=== PATIENT | male | born 1945 | race Caucasian/White ===

== ENCOUNTER 2019-03-05 01:43 | Inpatient (IN) | payer MEDICARE, MEDICAID ==
--- NOTE | 2019-03-05 02:05 | ED Physician Chart ---
ED Chief Complaint/HPI - Patient Information Date Seen:: 03/05/19 Time Seen:: 02:05 Chief Complaint:: Increased agitation History of Present Illness:: 73 yo male had history of Parkinson's disease, frequent falls, dementia, GERD, arthritis, kidney stones, chronic pain syndrome, depression, right testicular cyst, left epididymal cyst. Pt was recently admitted to [facility] on for sepsis and pneumonia. Pt was treated with IV antibiotics. Pt was discharged to SNF on 03/04/19 with doxycycline 100mg po bid for 7 days. Pt became combative at [facility] with paranoia, hitting staff and being non-compliant with medication. Pt was brought from [facility] to [facility] for psych evaluation and management. At ER, pt was singing songs. Pt had good O2 sat 96% on room air without cough or SOB. Pt had abrasions on bilateral knees due to frequent falls. Allergies:: Allergies Allergy/AdvReac Type Severity Reaction Status Date / Time No Known Allergies Allergy Verified 03/05/19 02:02 ED Review of Systems - Review of Systems General/Constitutional: No fever Skin: Skin lesions, Rash Head: No headache ENT: No nasal drainage Neck: No neck pain Cardio Vascular: No chest pain Pulmonary: SOB GI: No nausea, No vomiting G/U: No dysuria Musculoskeletal: Bone or joint pain Psychiatric: Prior psych history Neurological: No focal symptoms ED Past Medical History - Past Medical History Past Medical History: PUD/GERD, Arthritis, Dementia, Other (Parkinson's disease , frequent falls, kidney stones, chronic pain syndrome, right testicular cyst, left epididymal cyst) Social History: Non Smoker, No Alcohol, No Drug Use Psychiatricy History: Depression Family Medical History - Family Member Mother History Unknown: Yes ED Physical Exam - Physical Examination General/Constitutional: Awake, Alert Other Gen/Cons comments:: Disoriented Head: Atraumatic Eyes: PERRL Other Skin comments:: Erythematous rashes on the forehead Neck: No nuchal rigidity Other Respiratory comments:: Diminished lung sound left lung base Cardio Vascular: RRR, No murmur, gallop, rubs, NL S1 S2 GI: No tenderness/rebounding/guarding Other comments:: Enlarged right testicle Other Neuro/Psych comments:: A&O x 1 ED Labs/Radiology/EKG Results - Lab Results Results: Laboratory Last Values WBC 6.1 Th/cmm (4.8-10.8) 03/05/19 02:40 RBC 4.48 Mil/cmm (3.80-5.80) 03/05/19 02:40 Hgb 13.5 gm/dL (12-16) 03/05/19 02:40 Hct 40.9 % (41.0-60) L 03/05/19 02:40 MCV 91.2 fl (80-99) 03/05/19 02:40 MCH 30.2 pg (27.0-31.0) 03/05/19 02:40 MCHC Differential 33.1 pg (28.0-36.0) 03/05/19 02:40 RDW 13.7 % (11.5-20.0) 03/05/19 02:40 Plt Count 247 Th/cmm (150-400) 03/05/19 02:40 MPV 7.7 fl 03/05/19 02:40 Neutrophils % 80.5 % (40.0-80.0) H 03/05/19 02:40 Lymphocytes % 11.6 % (20.0-50.0) L 03/05/19 02:40 Monocytes % 4.0 % (2.0-10.0) 03/05/19 02:40 Eosinophils % 3.1 % (0.0-5.0) 03/05/19 02:40 Basophils % 0.8 % (0.0-2.0) 03/05/19 02:40 Sodium 140 mEq/L (136-145) 03/05/19 02:40 Potassium 3.5 mEq/L (3.5-5.1) 03/05/19 02:40 Chloride 105 mEq/L (98-107) 03/05/19 02:40 Carbon Dioxide 24.4 mEq/L (21.0-31.0) 03/05/19 02:40 Anion Gap 14.1 (7.0-16.0) 03/05/19 02:40 BUN 14 mg/dL (7-25) 03/05/19 02:40 Creatinine 0.7 mg/dL (0.7-1.3) 03/05/19 02:40 Est GFR ( Amer) TNP 03/05/19 02:40 Est GFR (Non-Af Amer) TNP 03/05/19 02:40 BUN/Creatinine Ratio 20.0 03/05/19 02:40 Glucose 95 mg/dL (70-105) 03/05/19 02:40 Calcium 8.9 mg/dL (8.6-10.3) 03/05/19 02:40 Total Bilirubin 0.8 mg/dL (0.3-1.0) 03/05/19 02:40 AST 23 U/L (13-39) 03/05/19 02:40 ALT 15 U/L (7-52) 03/05/19 02:40 Alkaline Phosphatase 46 U/L (34-104) 03/05/19 02:40 Troponin I 0.02 ng/mL (0.01-0.05) 03/05/19 02:40 B-Natriuretic Peptide 128.0 pg/mL (5.0-100.0) H 03/05/19 02:40 Total Protein 6.2 gm/dL (6.0-8.3) 03/05/19 02:40 Albumin 3.2 gm/dL (4.2-5.5) L 03/05/19 02:40 Globulin 3.0 gm/dL 03/05/19 02:40 Albumin/Globulin Ratio 1.1 (1.0-1.8) 03/05/19 02:40 - Radiology Results Results: CXR: left lower lobe infiltrate - EKG Interpretations EKG Time:: 02:10 Rate & Rhythm: 86 bpm, sinus rhythm Intervals: Right bundle branch block ED Assessment - Assessment General Assessment: Left lower lung pneumonia, resolving Parkinson's disease with frequent falls Dementia GERD Arthritis Kidney stones Chronic pain syndrome Right testicular cyst Left epididymal cyst Depression Psychosis Assessment/Comments:: CBC, CMP, BNP, Trop CXR, EKG Admit to [facility] for further psych evaluation and management Continue Doxycycline 100mg po bid for 7 days ED Septic Shock - . Is Septic Shock (SBP<90, OR Lactate>4 mmol\L) present?: No ED Reassessment (Disposition) - Reassessment Reassessment Condition:: Unchanged - Patient Disposition Discharge/Transfer:: [facility] w/in this hosp Admitting Medical Physician:: Gilles Call Admitting Psych Physician:: Ana Rosa Oneill
[2019-03-05 02:49] LABS: % BASOPHILS 0.8 % (0.0-2.0); % EOSINOPHILS 3.1 % (0.0-5.0); % LYMPHOCYTES 11.6 % (20.0-50.0); % NEUTROPHILS 80.5 % (40.0-80.0); EOSINOPHILE ABSOLUTE 0.2 Th/cmm (0.1-0.4); HEMATOCRIT 40.9 % (41.0-60); HEMOGLOBIN 13.5 gm/dL (12-16); LYMPHOCYTE ABSOLUTE 0.7 Th/cmm (1.5-3.0); MEAN CELL VOLUME 91.2 fl (80-99); MEAN CORPUSCULAR HEMOGLOBIN 30.2 pg (27.0-31.0); MEAN CORPUSCULAR HGB CONC 33.1 pg (28.0-36.0); MEAN PLATELET VOLUME 7.7 fl; MONOCYTE ABSOLUTE 0.2 Th/cmm (0.3-1.0); PLATELET COUNT 247 Th/cmm (150-400); RED BLOOD COUNT 4.48 Mil/cmm (3.80-5.80); RED CELL DISTRIBUTION WIDTH 13.7 % (11.5-20.0); WHITE BLOOD COUNT 6.1 Th/cmm (4.8-10.8)
[2019-03-05 03:06] LABS: ALB/GLOB RATIO 1.1 (1.0-1.8); ALBUMIN 3.2 gm/dL (4.2-5.5); ALKALINE PHOSPHATASE 46 U/L (34-104); ANION GAP 14.1 (7.0-16.0); BILIRUBIN,TOTAL 0.8 mg/dL (0.3-1.0); BUN - UREA NITROGEN 14 mg/dL (7-25); CALCIUM SERUM 8.9 mg/dL (8.6-10.3); CARBON DIOXIDE 24.4 mEq/L (21.0-31.0); CHLORIDE 105 mEq/L (98-107); CREATININE - SERUM 0.7 mg/dL (0.7-1.3); GLUCOSE 95 mg/dL (70-105); POTASSIUM SERUM 3.5 mEq/L (3.5-5.1); SGOT 23 U/L (13-39); SGPT/ALT 15 U/L (7-52); SODIUM SERUM 140 mEq/L (136-145); TOTAL PROTEIN,SERUM 6.2 gm/dL (6.0-8.3)
[2019-03-05] MEDS ORDERED: Maalox 30 mL Cup PO PRN (04:52)
[2019-03-05] MEDS ORDERED: Magnesium Hydroxide (MOM) 30 mL UDC PO PRN (04:52)
[2019-03-05 05:05] VITALS: BP 146/89
[2019-03-05] MEDS ORDERED: Haldol Oral Sol.(concentrate) 10 mg/5 mL Udc PO PRN (05:22)
[2019-03-05] MEDS ORDERED: Hydrocodone/APAP 10 mg/325 mg Tab PO PRN (06:53)
[2019-03-05 08:54] LABS: CHOLESTEROL 153 mg/dL (<200); HDL -HIGH DENSITY LIPOPROTEIN 41 mg/dL (23-92); TRIGLYCERIDES 98 mg/dL (<150)
[2019-03-05] MEDS ORDERED: PIMAVANSERIN TARTRATE PO SCH (09:00)
--- NOTE | 2019-03-05 09:09 | Diagnostic Imaging Report ---
Exam: Portable chest x-ray HISTORY: Shortness of breath COMPARISON: None Findings: Portable upright examination of the chest at 0307 hours reviewed, no prior studies available comparison. The study demonstrates mild left basal peribronchial infiltrate. The right lung parenchyma is well aerated. Mediastinal structures midline bony thorax intact. IMPRESSION mild left basal peribronchial infiltrate follow-up dictation recommended.
[2019-03-05] MEDS: Multivitamin Tab PO SCH (09:10)
[2019-03-05] MEDS: Pantoprazole 40 mg EC Tab PO SCH (09:12)
--- NOTE | 2019-03-05 23:04 | History & Physical ---
ADMIT DATE: 03/05/2019 HISTORY OF PRESENT ILLNESS: The patient is a 73-year-old male with long history of Parkinson disease, degenerative joint disease, dementia, chronic back pain, admitted to [facility] under Dr. Gupta's service. The patient is a poor historian. The patient has been on antibiotic for pneumonia. PAST MEDICAL HISTORY: Parkinson disease, degenerative joint disease, dementia. PAST SURGICAL HISTORY: Recent surgery. ALLERGIES: None. MEDICATIONS: Follow admission reconciliation. SOCIAL HISTORY: No smoking, no alcohol, no drug. FAMILY HISTORY: Noncontributory. REVIEW OF SYSTEMS: RENAL: No history of chronic renal disorder. CARDIOVASCULAR: No coronary artery disease. ENDOCRINE: No diabetes or thyroid problem. GASTROINTESTINAL: No upper or lower gastrointestinal bleed. NEUROLOGICAL: He has history of Parkinson disease. MUSCULOSKELETAL: Has degenerative joint disease. HEMATOLOGIC: No bleeding tendencies. RESPIRATORY: No asthma. He has history of pneumonia. PHYSICAL EXAMINATION: GENERAL: He is awake, not coherent. VITAL SIGNS: Temperature 98.4, heart rate 60, blood pressure 113/57. HEENT: Normocephalic. Pupils reactive to light and accommodation. Sclerae clear. NECK: Supple. Negative for adenopathy or JVD. CHEST: Entry of bilateral diminished. HEART: S1, S2 normal. No murmur or gallop rhythm. ABDOMEN: Soft, bowel sounds positive. EXTREMITIES: No edema. NEUROLOGIC: He is awake, not coherent. LABORATORY DATA: White blood 6.1, hemoglobin 13.5, hematocrit 40.9, platelets 247. Sodium 140, potassium 3.5, BUN 14, creatinine 0.7. ASSESSMENT: 1. Parkinson disease. 2. Chronic back pain. 3. Degenerative joint disease. 4. Dementia. PLAN: The patient in the hospital under Dr. Gupta's service. Medical problems to address during the hospitalization are dementia and psychosis. Medical problem addressed at discharge is Parkinson disease. The patient is medically stable for activity. Thank you Dr. Gupta for asking me to see your patient. The patient is a full code. JOB# [id number]
[2019-03-06] MEDS: Pantoprazole 40 mg EC Tab PO SCH (06:40)
--- NOTE | 2019-03-06 08:20 | Psychiatric Evaluation ---
DATE OF SERVICE: 03/05/2019 JUSTIFICATION FOR HOSPITALIZATION: Increased agitation. HISTORY OF PRESENT ILLNESS: A 73-year-old male with history of dementia, multiple other problems, AO to name, place and situation, not year, not month, says the year is 1985, unable to have any meaningful conversation with the patient, intermittently impulsive, unpredictable, concerns for acting out behaviors. Also, history of fall, currently in a Lala chair, here for increased aggressive and agitated behaviors. PAST PSYCHIATRIC HISTORY: Dementia. PAST MEDICAL HISTORY: Noted including pneumonia. SOCIAL HISTORY: Tells me he was born in [place]. He has 1 adult child, 1 grandson, unclear if he is , currently residing in a shelter. MEDICATIONS: Noted. MENTAL STATUS EXAMINATION: Stated age, in a Lala chair. Fair eye contact. Speech is rambling. Mood, "okay." Affect flat. Thought processes were confused, disoriented. No SI, no HI. No overt psychotic symptoms. Insight and judgment are poor. PROVISIONAL DIAGNOSES: Dementia with dementia behaviors. Under medical, please see full H and P. ESTIMATED LENGTH OF STAY: 7-10 days. ASSESSMENT: The patient requiring hospitalization, aggressive and agitated. We will also add Namenda to regimen. TREATMENT PLAN: Includes group as well as milieu therapy. CONDITIONS FOR DISCHARGE: Improved mood, improved affect, better control of any agitation and aggressive behaviors. JOB# [id number]
[2019-03-06] MEDS: Multivitamin Tab PO SCH (08:43)
[2019-03-06] MEDS ORDERED: Haldol Oral Sol.(concentrate) 10 mg/5 mL Udc PO SCH (09:00)
--- NOTE | 2019-03-06 17:29 | Internal Medicine Prog Note ---
Internal Medicine Subjective - Subjective Service Date: 03/06/19 Patient seen and examined:: without staff Patient is:: awake, verbal, talking, confused Per staff patient has:: no adverse event Internal Medicine Objective - Results Result Diagrams: 03/05/19 02:40 03/05/19 02:40 Recent Labs: Laboratory Last Values WBC 6.1 Th/cmm (4.8-10.8) 03/05/19 02:40 RBC 4.48 Mil/cmm (3.80-5.80) 03/05/19 02:40 Hgb 13.5 gm/dL (12-16) 03/05/19 02:40 Hct 40.9 % (41.0-60) L 03/05/19 02:40 MCV 91.2 fl (80-99) 03/05/19 02:40 MCH 30.2 pg (27.0-31.0) 03/05/19 02:40 MCHC Differential 33.1 pg (28.0-36.0) 03/05/19 02:40 RDW 13.7 % (11.5-20.0) 03/05/19 02:40 Plt Count 247 Th/cmm (150-400) 03/05/19 02:40 MPV 7.7 fl 03/05/19 02:40 Neutrophils % 80.5 % (40.0-80.0) H 03/05/19 02:40 Lymphocytes % 11.6 % (20.0-50.0) L 03/05/19 02:40 Monocytes % 4.0 % (2.0-10.0) 03/05/19 02:40 Eosinophils % 3.1 % (0.0-5.0) 03/05/19 02:40 Basophils % 0.8 % (0.0-2.0) 03/05/19 02:40 Sodium 140 mEq/L (136-145) 03/05/19 02:40 Potassium 3.5 mEq/L (3.5-5.1) 03/05/19 02:40 Chloride 105 mEq/L (98-107) 03/05/19 02:40 Carbon Dioxide 24.4 mEq/L (21.0-31.0) 03/05/19 02:40 Anion Gap 14.1 (7.0-16.0) 03/05/19 02:40 BUN 14 mg/dL (7-25) 03/05/19 02:40 Creatinine 0.7 mg/dL (0.7-1.3) 03/05/19 02:40 Est GFR ( Amer) TNP 03/05/19 02:40 Est GFR (Non-Af Amer) TNP 03/05/19 02:40 BUN/Creatinine Ratio 20.0 03/05/19 02:40 Glucose 95 mg/dL (70-105) 03/05/19 02:40 Calcium 8.9 mg/dL (8.6-10.3) 03/05/19 02:40 Total Bilirubin 0.8 mg/dL (0.3-1.0) 03/05/19 02:40 AST 23 U/L (13-39) 03/05/19 02:40 ALT 15 U/L (7-52) 03/05/19 02:40 Alkaline Phosphatase 46 U/L (34-104) 03/05/19 02:40 Troponin I 0.02 ng/mL (0.01-0.05) 03/05/19 02:40 B-Natriuretic Peptide 128.0 pg/mL (5.0-100.0) H 03/05/19 02:40 Total Protein 6.2 gm/dL (6.0-8.3) 03/05/19 02:40 Albumin 3.2 gm/dL (4.2-5.5) L 03/05/19 02:40 Globulin 3.0 gm/dL 03/05/19 02:40 Albumin/Globulin Ratio 1.1 (1.0-1.8) 03/05/19 02:40 Triglycerides 98 mg/dL (<150) 03/05/19 02:40 Cholesterol 153 mg/dL (<200) 03/05/19 02:40 LDL Cholesterol Direct 100 mg/dL (75-193) 03/05/19 02:40 HDL Cholesterol 41 mg/dL (23-92) 03/05/19 02:40 TSH 2.77 uIU/ml (0.34-5.60) 03/05/19 02:40 - Physical Exam Vitals and I&O: Vital Signs Temp 97.6 F 03/06/19 14:00 Pulse 90 03/06/19 14:00 Resp 18 03/06/19 14:00 BP 116/52 03/06/19 14:00 Pulse Ox 97 03/06/19 14:00 Intake & Output 03/05/19 03/06/19 03/06/19 18:59 06:59 18:59 Intake Total 800 120 Balance 800 120 Intake: Oral 800 120 Other: # Voids 3 3 # Bowel Movements 1 0 Stool Characteristics Soft Active Medications: Current Medications Acetaminophen (Tylenol) 650 mg PO Q4HR PRN PRN Reason: Mild Pain / Temp above 100 Stop: 05/04/19 04:51 Acetaminophen/Hydrocodone Bitart ([place] 10 Mg/325 Mg) 1 tab PO Q6HR PRN PRN Reason: moderate pain Stop: 05/04/19 06:52 Al Hydrox/Mg Hydrox/Simethicone (Maalox) 30 ml PO Q4HR PRN PRN Reason: GI DISTRESS Stop: 05/04/19 04:51 Carbidopa/Levodopa (Sinemet 25 Mg-250 Mg) 1 tab PO QID [facility] Stop: 05/04/19 08:59 Last Admin: 03/06/19 16:38 Dose: 1 tab Cholecalciferol (Vitamin D3) 2,000 iu PO DAILY [facility] Stop: 05/04/19 08:59 Last Admin: 03/06/19 08:41 Dose: 2,000 iu Doxycycline Hyclate (Vibramycin) 100 mg PO BID [facility] Stop: 05/04/19 08:59 Last Admin: 03/06/19 16:37 Dose: 100 mg Fluoxetine HCl (Prozac) 20 mg PO DAILY [facility]; Protocol Stop: 05/04/19 08:59 Last Admin: 03/06/19 08:43 Dose: 20 mg Gabapentin (Neurontin) 300 mg PO TID [facility] Stop: 05/04/19 08:59 Last Admin: 03/06/19 14:05 Dose: 300 mg Haloperidol Lactate (Haldol Concentrate 10mg/5ml Susp) 5 mg PO Q6HR PRN; Protocol PRN Reason: Agitation Stop: 05/04/19 05:59 Last Admin: 03/06/19 08:42 Dose: 5 mg Lorazepam (Ativan) 0.5 mg PO Q4HR PRN; Protocol PRN Reason: Anxiety Stop: 04/04/19 04:51 Last Admin: 03/05/19 21:27 Dose: 0.5 mg Magnesium Hydroxide (Milk Of Magnesia) 30 ml PO HS PRN PRN Reason: Constipation Memantine (Namenda) 5 mg PO DAILY [facility] Stop: 05/05/19 08:59 Last Admin: 03/06/19 08:43 Dose: 5 mg Miscellaneous (Pimavanserin Tartrate [Nuplazid]) 1 tab PO BID [facility] Stop: 05/04/19 08:59 Multivitamins/Vitamin C (Theragran) 1 tab PO DAILY [facility] Stop: 05/04/19 08:59 Last Admin: 03/06/19 08:43 Dose: 1 tab Pantoprazole Sodium (Protonix) 40 mg PO QDAC [facility] Stop: 05/04/19 07:59 Last Admin: 03/06/19 06:40 Dose: 40 mg Pramipexole Dihydrochloride (Mirapex) 0.5 mg PO TID [facility]; Protocol Stop: 05/04/19 08:59 Last Admin: 03/05/19 20:41 Dose: 0.5 mg Risperidone (Risperdal) 0.5 mg PO BID [facility]; Protocol Stop: 05/05/19 16:59 Last Admin: 03/06/19 16:37 Dose: 0.5 mg Tizanidine HCl (Zanaflex) 4 mg PO TID [facility] Stop: 05/04/19 08:59 Last Admin: 03/05/19 20:41 Dose: 4 mg Zolpidem Tartrate (Ambien) 5 mg PO HS PRN PRN Reason: Insomnia Stop: 05/04/19 04:51 Last Admin: 03/05/19 21:28 Dose: 5 mg General: demented HEENT: NC/AT, PERRLA, EOMI, anicteric sclerae, throat clear Neck: Supple, No JVD, No thyromegaly, +2 carotid pulse wo bruit, No LAD, + JVD Lungs: CTAB Cardiovascular: RRR, Normal S1, Normal S2, without murmur Abdomen: soft, non-tender, non-distended Neurological: no change Internal Medicine Assmt/Plan - Assessment Assessment: 1.DJD. 2.CONSTIPATION. 3.DEMENTIA - Plan Plan: CONTINUE ON CURRENT MEDICATION AND DIET.
--- NOTE | 2019-03-06 22:43 | Progress Notes ---
DATE: 03/06/2019 The patient is aggressive, agitated, trying to hit staff, quite demented, very impulsive, unpredictable, also hypersexual currently on a dosing of Namenda and Prozac. The patient seems to be out of touch with reality. Concerns for violent behaviors, aggressive behaviors. ASSESSMENT: The patient is symptomatic, fair sleep, fair appetite, but very aggressive, hypersexual towards staff, attempting to harm staff. PLAN: We will stop Haldol, changed to dosing of Risperdal. [facility]# [id number]
[2019-03-07] MEDS: Pantoprazole 40 mg EC Tab PO SCH ×2 (06:33→08:30)
[2019-03-07] MEDS: Multivitamin Tab PO SCH (08:29)
--- NOTE | 2019-03-07 20:51 | Internal Medicine Prog Note ---
Internal Medicine Subjective - Subjective Service Date: 03/07/19 Patient seen and examined:: without staff (HE IS DOING WELL) Patient is:: awake, verbal, talking, confused Per staff patient has:: no adverse event Internal Medicine Objective - Results Result Diagrams: 03/05/19 02:40 03/05/19 02:40 Recent Labs: Laboratory Last Values WBC 6.1 Th/cmm (4.8-10.8) 03/05/19 02:40 RBC 4.48 Mil/cmm (3.80-5.80) 03/05/19 02:40 Hgb 13.5 gm/dL (12-16) 03/05/19 02:40 Hct 40.9 % (41.0-60) L 03/05/19 02:40 MCV 91.2 fl (80-99) 03/05/19 02:40 MCH 30.2 pg (27.0-31.0) 03/05/19 02:40 MCHC Differential 33.1 pg (28.0-36.0) 03/05/19 02:40 RDW 13.7 % (11.5-20.0) 03/05/19 02:40 Plt Count 247 Th/cmm (150-400) 03/05/19 02:40 MPV 7.7 fl 03/05/19 02:40 Neutrophils % 80.5 % (40.0-80.0) H 03/05/19 02:40 Lymphocytes % 11.6 % (20.0-50.0) L 03/05/19 02:40 Monocytes % 4.0 % (2.0-10.0) 03/05/19 02:40 Eosinophils % 3.1 % (0.0-5.0) 03/05/19 02:40 Basophils % 0.8 % (0.0-2.0) 03/05/19 02:40 Sodium 140 mEq/L (136-145) 03/05/19 02:40 Potassium 3.5 mEq/L (3.5-5.1) 03/05/19 02:40 Chloride 105 mEq/L (98-107) 03/05/19 02:40 Carbon Dioxide 24.4 mEq/L (21.0-31.0) 03/05/19 02:40 Anion Gap 14.1 (7.0-16.0) 03/05/19 02:40 BUN 14 mg/dL (7-25) 03/05/19 02:40 Creatinine 0.7 mg/dL (0.7-1.3) 03/05/19 02:40 Est GFR ( Amer) TNP 03/05/19 02:40 Est GFR (Non-Af Amer) TNP 03/05/19 02:40 BUN/Creatinine Ratio 20.0 03/05/19 02:40 Glucose 95 mg/dL (70-105) 03/05/19 02:40 Calcium 8.9 mg/dL (8.6-10.3) 03/05/19 02:40 Total Bilirubin 0.8 mg/dL (0.3-1.0) 03/05/19 02:40 AST 23 U/L (13-39) 03/05/19 02:40 ALT 15 U/L (7-52) 03/05/19 02:40 Alkaline Phosphatase 46 U/L (34-104) 03/05/19 02:40 Troponin I 0.02 ng/mL (0.01-0.05) 03/05/19 02:40 B-Natriuretic Peptide 128.0 pg/mL (5.0-100.0) H 03/05/19 02:40 Total Protein 6.2 gm/dL (6.0-8.3) 03/05/19 02:40 Albumin 3.2 gm/dL (4.2-5.5) L 03/05/19 02:40 Globulin 3.0 gm/dL 03/05/19 02:40 Albumin/Globulin Ratio 1.1 (1.0-1.8) 03/05/19 02:40 Triglycerides 98 mg/dL (<150) 03/05/19 02:40 Cholesterol 153 mg/dL (<200) 03/05/19 02:40 LDL Cholesterol Direct 100 mg/dL (75-193) 03/05/19 02:40 HDL Cholesterol 41 mg/dL (23-92) 03/05/19 02:40 TSH 2.77 uIU/ml (0.34-5.60) 03/05/19 02:40 - Physical Exam Vitals and I&O: Vital Signs Temp 98.1 F 03/07/19 20:17 Pulse 103 03/07/19 20:17 Resp 20 03/07/19 20:17 BP 114/80 03/07/19 20:17 Pulse Ox 96 03/07/19 20:17 Intake & Output 03/07/19 03/07/19 03/08/19 06:59 18:59 06:59 Intake Total 120 850 240 Output Total 1 Balance 120 850 239 Intake: Oral 120 850 240 Output: Urine/Stool Mix 1 Other: # Voids 2 3 1 # Bowel Movements 0 0 Stool Characteristics Soft Active Medications: Current Medications Acetaminophen (Tylenol) 650 mg PO Q4HR PRN PRN Reason: Mild Pain / Temp above 100 Stop: 05/04/19 04:51 Acetaminophen/Hydrocodone Bitart ([place] 10 Mg/325 Mg) 1 tab PO Q6HR PRN PRN Reason: moderate pain Stop: 05/04/19 06:52 Al Hydrox/Mg Hydrox/Simethicone (Maalox) 30 ml PO Q4HR PRN PRN Reason: GI DISTRESS Stop: 05/04/19 04:51 Carbidopa/Levodopa (Sinemet 25 Mg-250 Mg) 1 tab PO QID [facility] Stop: 05/04/19 08:59 Last Admin: 03/07/19 20:46 Dose: 1 tab Cholecalciferol (Vitamin D3) 2,000 iu PO DAILY [facility] Stop: 05/04/19 08:59 Last Admin: 03/07/19 08:31 Dose: 2,000 iu Doxycycline Hyclate (Vibramycin) 100 mg PO BID [facility] Stop: 05/04/19 08:59 Last Admin: 03/07/19 16:15 Dose: 100 mg Fluoxetine HCl (Prozac) 20 mg PO DAILY [facility]; Protocol Stop: 05/04/19 08:59 Last Admin: 03/07/19 08:29 Dose: 20 mg Gabapentin (Neurontin) 300 mg PO TID [facility] Stop: 05/04/19 08:59 Last Admin: 03/07/19 20:46 Dose: 300 mg Haloperidol Lactate (Haldol Concentrate 10mg/5ml Susp) 5 mg PO Q6HR PRN; Protocol PRN Reason: Agitation Stop: 05/04/19 05:59 Last Admin: 03/06/19 08:42 Dose: 5 mg Lorazepam (Ativan) 0.5 mg PO Q4HR PRN; Protocol PRN Reason: Anxiety Stop: 04/04/19 04:51 Last Admin: 03/05/19 21:27 Dose: 0.5 mg Magnesium Hydroxide (Milk Of Magnesia) 30 ml PO HS PRN PRN Reason: Constipation Memantine (Namenda) 5 mg PO DAILY [facility] Stop: 05/05/19 08:59 Last Admin: 03/07/19 08:31 Dose: 5 mg Miscellaneous (Pimavanserin Tartrate [Nuplazid]) 1 tab PO BID [facility] Stop: 05/04/19 08:59 Multivitamins/Vitamin C (Theragran) 1 tab PO DAILY [facility] Stop: 05/04/19 08:59 Last Admin: 03/07/19 08:29 Dose: 1 tab Pantoprazole Sodium (Protonix) 40 mg PO QDAC [facility] Stop: 05/04/19 07:59 Last Admin: 03/07/19 08:30 Dose: 40 mg Pramipexole Dihydrochloride (Mirapex) 0.5 mg PO TID [facility]; Protocol Stop: 05/04/19 08:59 Last Admin: 03/07/19 20:46 Dose: 0.5 mg Risperidone (Risperdal) 0.5 mg PO BID [facility]; Protocol Stop: 05/05/19 16:59 Last Admin: 03/07/19 16:16 Dose: 0.5 mg Tizanidine HCl (Zanaflex) 4 mg PO TID [facility] Stop: 05/04/19 08:59 Last Admin: 03/07/19 20:46 Dose: 4 mg Zolpidem Tartrate (Ambien) 5 mg PO HS PRN PRN Reason: Insomnia Stop: 05/04/19 04:51 Last Admin: 03/06/19 20:30 Dose: 5 mg General: demented HEENT: NC/AT, PERRLA, EOMI, anicteric sclerae, throat clear Neck: Supple, No JVD, No thyromegaly, +2 carotid pulse wo bruit, No LAD, + JVD Lungs: CTAB Cardiovascular: RRR, Normal S1, Normal S2, without murmur Abdomen: soft, non-tender, non-distended Neurological: no change Internal Medicine Assmt/Plan - Assessment Assessment: 1.DJD. 2.CONSTIPATION. 3.DEMENTIA - Plan Plan: CONTINUE ON CURRENT MEDICATION AND DIET.
--- NOTE | 2019-03-08 02:52 | Progress Notes ---
DATE: 03/07/2019 The patient noted to be aggressive, agitated at times, trying to hit staff, very confused, disoriented. Ongoing safety concerns. Currently taking Namenda. Currently on a low dose of Risperdal. Staff noting he remains impulsive, unpredictable, mostly keeps to himself. Behavior seems to be lessening but he believes there is a democrat and he is hypersexual, trying to touch female nurses, preoccupied with female nurses. ASSESSMENT: Ongoing behavioral disturbances, cannot be cared for at a lower level of care. Continue Namenda and Risperdal. JOB# [id number]
[2019-03-08] MEDS: Pantoprazole 40 mg EC Tab PO SCH (06:46)
[2019-03-08] MEDS: Multivitamin Tab PO SCH (09:49)
--- NOTE | 2019-03-08 21:10 | Internal Medicine Prog Note ---
Internal Medicine Subjective - Subjective Service Date: 03/08/19 Patient seen and examined:: with staff Patient is:: awake, verbal, talking, confused Per staff patient has:: no adverse event Internal Medicine Objective - Results Result Diagrams: 03/05/19 02:40 03/05/19 02:40 Recent Labs: Laboratory Last Values WBC 6.1 Th/cmm (4.8-10.8) 03/05/19 02:40 RBC 4.48 Mil/cmm (3.80-5.80) 03/05/19 02:40 Hgb 13.5 gm/dL (12-16) 03/05/19 02:40 Hct 40.9 % (41.0-60) L 03/05/19 02:40 MCV 91.2 fl (80-99) 03/05/19 02:40 MCH 30.2 pg (27.0-31.0) 03/05/19 02:40 MCHC Differential 33.1 pg (28.0-36.0) 03/05/19 02:40 RDW 13.7 % (11.5-20.0) 03/05/19 02:40 Plt Count 247 Th/cmm (150-400) 03/05/19 02:40 MPV 7.7 fl 03/05/19 02:40 Neutrophils % 80.5 % (40.0-80.0) H 03/05/19 02:40 Lymphocytes % 11.6 % (20.0-50.0) L 03/05/19 02:40 Monocytes % 4.0 % (2.0-10.0) 03/05/19 02:40 Eosinophils % 3.1 % (0.0-5.0) 03/05/19 02:40 Basophils % 0.8 % (0.0-2.0) 03/05/19 02:40 Sodium 140 mEq/L (136-145) 03/05/19 02:40 Potassium 3.5 mEq/L (3.5-5.1) 03/05/19 02:40 Chloride 105 mEq/L (98-107) 03/05/19 02:40 Carbon Dioxide 24.4 mEq/L (21.0-31.0) 03/05/19 02:40 Anion Gap 14.1 (7.0-16.0) 03/05/19 02:40 BUN 14 mg/dL (7-25) 03/05/19 02:40 Creatinine 0.7 mg/dL (0.7-1.3) 03/05/19 02:40 Est GFR ( Amer) TNP 03/05/19 02:40 Est GFR (Non-Af Amer) TNP 03/05/19 02:40 BUN/Creatinine Ratio 20.0 03/05/19 02:40 Glucose 95 mg/dL (70-105) 03/05/19 02:40 Calcium 8.9 mg/dL (8.6-10.3) 03/05/19 02:40 Total Bilirubin 0.8 mg/dL (0.3-1.0) 03/05/19 02:40 AST 23 U/L (13-39) 03/05/19 02:40 ALT 15 U/L (7-52) 03/05/19 02:40 Alkaline Phosphatase 46 U/L (34-104) 03/05/19 02:40 Troponin I 0.02 ng/mL (0.01-0.05) 03/05/19 02:40 B-Natriuretic Peptide 128.0 pg/mL (5.0-100.0) H 03/05/19 02:40 Total Protein 6.2 gm/dL (6.0-8.3) 03/05/19 02:40 Albumin 3.2 gm/dL (4.2-5.5) L 03/05/19 02:40 Globulin 3.0 gm/dL 03/05/19 02:40 Albumin/Globulin Ratio 1.1 (1.0-1.8) 03/05/19 02:40 Triglycerides 98 mg/dL (<150) 03/05/19 02:40 Cholesterol 153 mg/dL (<200) 03/05/19 02:40 LDL Cholesterol Direct 100 mg/dL (75-193) 03/05/19 02:40 HDL Cholesterol 41 mg/dL (23-92) 03/05/19 02:40 TSH 2.77 uIU/ml (0.34-5.60) 03/05/19 02:40 - Physical Exam Vitals and I&O: Vital Signs Temp 97 F 03/08/19 20:00 Pulse 92 03/08/19 20:00 Resp 19 03/08/19 20:00 BP 161/74 03/08/19 20:00 Pulse Ox 97 03/08/19 20:00 Intake & Output 03/08/19 03/08/19 03/09/19 06:59 18:59 06:59 Intake Total 300 960 Output Total 1 Balance 299 960 Intake: Oral 300 960 Output: Urine/Stool Mix 1 Other: # Voids 2 3 # Bowel Movements 0 1 Active Medications: Current Medications Acetaminophen (Tylenol) 650 mg PO Q4HR PRN PRN Reason: Mild Pain / Temp above 100 Stop: 05/04/19 04:51 Acetaminophen/Hydrocodone Bitart ([place] 10 Mg/325 Mg) 1 tab PO Q6HR PRN PRN Reason: moderate pain Stop: 05/04/19 06:52 Al Hydrox/Mg Hydrox/Simethicone (Maalox) 30 ml PO Q4HR PRN PRN Reason: GI DISTRESS Stop: 05/04/19 04:51 Carbidopa/Levodopa (Sinemet 25 Mg-250 Mg) 1 tab PO QID [facility] Stop: 05/04/19 08:59 Last Admin: 03/08/19 21:08 Dose: 1 tab Cholecalciferol (Vitamin D3) 2,000 iu PO DAILY [facility] Stop: 05/04/19 08:59 Last Admin: 03/08/19 09:49 Dose: 2,000 iu Doxycycline Hyclate (Vibramycin) 100 mg PO BID [facility] Stop: 05/04/19 08:59 Last Admin: 03/08/19 17:31 Dose: 100 mg Fluoxetine HCl (Prozac) 20 mg PO DAILY [facility]; Protocol Stop: 05/04/19 08:59 Last Admin: 03/08/19 09:50 Dose: 20 mg Gabapentin (Neurontin) 300 mg PO TID [facility] Stop: 05/04/19 08:59 Last Admin: 03/08/19 21:08 Dose: 300 mg Haloperidol Lactate (Haldol Concentrate 10mg/5ml Susp) 5 mg PO Q6HR PRN; Protocol PRN Reason: Agitation Stop: 05/04/19 05:59 Last Admin: 03/06/19 08:42 Dose: 5 mg Lorazepam (Ativan) 0.5 mg PO Q4HR PRN; Protocol PRN Reason: Anxiety Stop: 04/04/19 04:51 Last Admin: 03/08/19 17:31 Dose: 0.5 mg Magnesium Hydroxide (Milk Of Magnesia) 30 ml PO HS PRN PRN Reason: Constipation Memantine (Namenda) 5 mg PO DAILY [facility] Stop: 05/05/19 08:59 Last Admin: 03/08/19 09:49 Dose: 5 mg Miscellaneous (Pimavanserin Tartrate [Nuplazid]) 1 tab PO BID [facility] Stop: 05/04/19 08:59 Multivitamins/Vitamin C (Theragran) 1 tab PO DAILY [facility] Stop: 05/04/19 08:59 Last Admin: 03/08/19 09:49 Dose: 1 tab Pantoprazole Sodium (Protonix) 40 mg PO QDAC [facility] Stop: 05/04/19 07:59 Last Admin: 03/08/19 06:46 Dose: 40 mg Pramipexole Dihydrochloride (Mirapex) 0.5 mg PO TID [facility]; Protocol Stop: 05/04/19 08:59 Last Admin: 03/08/19 21:08 Dose: 0.5 mg Risperidone (Risperdal) 0.5 mg PO BID [facility]; Protocol Stop: 05/05/19 16:59 Last Admin: 03/08/19 17:31 Dose: 0.5 mg Tizanidine HCl (Zanaflex) 4 mg PO TID [facility] Stop: 05/04/19 08:59 Last Admin: 03/08/19 21:08 Dose: 4 mg Zolpidem Tartrate (Ambien) 5 mg PO HS PRN PRN Reason: Insomnia Stop: 05/04/19 04:51 Last Admin: 03/06/19 20:30 Dose: 5 mg General: demented HEENT: NC/AT, PERRLA, EOMI, anicteric sclerae, throat clear Neck: Supple, No JVD, No thyromegaly, +2 carotid pulse wo bruit, No LAD, + JVD Lungs: CTAB Cardiovascular: RRR, Normal S1, Normal S2, without murmur Abdomen: soft, non-tender, non-distended Neurological: no change Internal Medicine Assmt/Plan - Assessment Assessment: 1.DJD. 2.CONSTIPATION. 3.DEMENTIA - Plan Plan: CONTINUE ON CURRENT MEDICATION AND DIET. Nutritional Asmnt/Malnutr-PDOC - Dietary Evaluation Malnutrition Findings (Please click <Entered> for more info): Nutritional Asmnt/Malnutrition Start: 03/08/19 08: 25 Text: Status: Complete Freq: Protocol: Document 03/08/19 08:27 ALO (Rec: 03/08/19 08:52 ALO BRITNI- [email or web address]) Nutritional Asmnt/Malnutrition Patient General Information Nutritional Screening Moderate Risk Diagnosis Psychosis Pertinent Medical Hx/Surgical Hx Parkinson's disease, degernerative joint disease, dementia Subjective Information Admitted from [facility]. Patient not in room at time of visit. Current Diet Order/ Nutrition Support Pureed Patient / S.O Not Indicated Pertinent Medications maalox, vitamin D, MOM, Theragran, protonix Pertinent Labs (03/05) Albumin 3.2, BNP 128 Nutritional Hx/Data Height 1.75 m Height (Calculated Centimeters) 175.3 Current Weight (lbs) 83.007 kg Weight (Calculated Kilograms) 83.0 Weight (Calculated Grams) 48034.4 [place] Body Weight 160 % [place] Body Weight 114 Body Mass Index (BMI) 27.0 Recent Weight Change No Weight Status Overweight GI Symptoms GI Symptoms None Last BM 03/06 x 1 Difficult in: None Food Allergies No Cultural/Ethnic/Gnosticist Belief none indicated Usual diet at home unknown Skin Integrity/Comment: [place] 18, abrasion on both knees, wound Current %PO Good (75-100%) Estimated Nutritional Goals BEE in Kcals: Using Current wt Calories/Kcals/Kg using CBW 83kg Kcals Calculated 5641-4058 kcal/day (22-27kcal/ kg) Protein: Using Current wt Protein g/k.8-1 gm/kg Protein Calculated ~65-85 gm/day Fluid: ml 3682-0776 ml/day Nutritional Problem 1. Problem Problem No nutrition related diagnosis Intervention/Recommendation Comments 1. Continue pureed diet as tolerated by patient. Expected Outcomes/Goals Expected Outcomes/Goals Oral intake >75% of meals, weight stable, nutrition related labs WNL F/U LR 03/15
--- NOTE | 2019-03-09 04:55 | Progress Notes ---
DATE: 03/08/[address] Gupta. SUBJECTIVE: Case was discussed with staff of the patient, reviewed records. This is a 73-year-old male with a history of dementia, who was admitted on 03/05/2019 because of impulsivity, unpredictable behavior with a history of dementia. He is unpredictable, impulsive, demented, confused. He was trying to hit staff yesterday. He continues to be easily agitated and aggressive. He was started on a low dose of Risperdal. He continues to also be hypersexual trying to touch females and the nurses. Continues to have poor insight, unpredictable, impulsive. We will continue outpatient group therapy, milieu therapy, adjust the medication as needed. JOB# [id number]
[2019-03-09] MEDS: Pantoprazole 40 mg EC Tab PO SCH (06:35)
[2019-03-09] MEDS: Multivitamin Tab PO SCH (09:59)
--- NOTE | 2019-03-09 13:25 | Progress Notes ---
DATE: 03/09/[address] Gupta. Case was discussed with staff of the patient, reviewed records. The patient continues to be confused, demented. Continues to be unable to make safe plan for self-care, unpredictable, impulsive with episodes of being very agitated, hitting staff, aggressive. He is compliant with the medication with no side effects. Also, at times hypersexual and we will continue to work with the patient in group therapy, milieu therapy, and adjust the medication as needed. JOB# [id number]
--- NOTE | 2019-03-09 17:08 | Internal Medicine Prog Note ---
Internal Medicine Subjective - Subjective Service Date: 03/09/19 Patient seen and examined:: without staff Patient is:: awake, verbal, talking, confused Per staff patient has:: no adverse event Internal Medicine Objective - Results Result Diagrams: 03/05/19 02:40 03/05/19 02:40 Recent Labs: Laboratory Last Values WBC 6.1 Th/cmm (4.8-10.8) 03/05/19 02:40 RBC 4.48 Mil/cmm (3.80-5.80) 03/05/19 02:40 Hgb 13.5 gm/dL (12-16) 03/05/19 02:40 Hct 40.9 % (41.0-60) L 03/05/19 02:40 MCV 91.2 fl (80-99) 03/05/19 02:40 MCH 30.2 pg (27.0-31.0) 03/05/19 02:40 MCHC Differential 33.1 pg (28.0-36.0) 03/05/19 02:40 RDW 13.7 % (11.5-20.0) 03/05/19 02:40 Plt Count 247 Th/cmm (150-400) 03/05/19 02:40 MPV 7.7 fl 03/05/19 02:40 Neutrophils % 80.5 % (40.0-80.0) H 03/05/19 02:40 Lymphocytes % 11.6 % (20.0-50.0) L 03/05/19 02:40 Monocytes % 4.0 % (2.0-10.0) 03/05/19 02:40 Eosinophils % 3.1 % (0.0-5.0) 03/05/19 02:40 Basophils % 0.8 % (0.0-2.0) 03/05/19 02:40 Sodium 140 mEq/L (136-145) 03/05/19 02:40 Potassium 3.5 mEq/L (3.5-5.1) 03/05/19 02:40 Chloride 105 mEq/L (98-107) 03/05/19 02:40 Carbon Dioxide 24.4 mEq/L (21.0-31.0) 03/05/19 02:40 Anion Gap 14.1 (7.0-16.0) 03/05/19 02:40 BUN 14 mg/dL (7-25) 03/05/19 02:40 Creatinine 0.7 mg/dL (0.7-1.3) 03/05/19 02:40 Est GFR ( Amer) TNP 03/05/19 02:40 Est GFR (Non-Af Amer) TNP 03/05/19 02:40 BUN/Creatinine Ratio 20.0 03/05/19 02:40 Glucose 95 mg/dL (70-105) 03/05/19 02:40 Calcium 8.9 mg/dL (8.6-10.3) 03/05/19 02:40 Total Bilirubin 0.8 mg/dL (0.3-1.0) 03/05/19 02:40 AST 23 U/L (13-39) 03/05/19 02:40 ALT 15 U/L (7-52) 03/05/19 02:40 Alkaline Phosphatase 46 U/L (34-104) 03/05/19 02:40 Troponin I 0.02 ng/mL (0.01-0.05) 03/05/19 02:40 B-Natriuretic Peptide 128.0 pg/mL (5.0-100.0) H 03/05/19 02:40 Total Protein 6.2 gm/dL (6.0-8.3) 03/05/19 02:40 Albumin 3.2 gm/dL (4.2-5.5) L 03/05/19 02:40 Globulin 3.0 gm/dL 03/05/19 02:40 Albumin/Globulin Ratio 1.1 (1.0-1.8) 03/05/19 02:40 Triglycerides 98 mg/dL (<150) 03/05/19 02:40 Cholesterol 153 mg/dL (<200) 03/05/19 02:40 LDL Cholesterol Direct 100 mg/dL (75-193) 03/05/19 02:40 HDL Cholesterol 41 mg/dL (23-92) 03/05/19 02:40 TSH 2.77 uIU/ml (0.34-5.60) 03/05/19 02:40 - Physical Exam Vitals and I&O: Vital Signs Temp 97.1 F 03/09/19 06:22 Pulse 75 03/09/19 06:22 Resp 20 03/09/19 06:22 BP 120/60 03/09/19 06:22 Pulse Ox 96 03/09/19 06:22 Intake & Output 03/08/19 03/09/19 03/09/19 18:59 06:59 18:59 Intake Total 960 120 Balance 960 120 Intake: Oral 960 120 Other: # Voids 3 3 # Bowel Movements 1 Active Medications: Current Medications Acetaminophen (Tylenol) 650 mg PO Q4HR PRN PRN Reason: Mild Pain / Temp above 100 Stop: 05/04/19 04:51 Acetaminophen/Hydrocodone Bitart ([place] 10 Mg/325 Mg) 1 tab PO Q6HR PRN PRN Reason: moderate pain Stop: 05/04/19 06:52 Al Hydrox/Mg Hydrox/Simethicone (Maalox) 30 ml PO Q4HR PRN PRN Reason: GI DISTRESS Stop: 05/04/19 04:51 Carbidopa/Levodopa (Sinemet 25 Mg-250 Mg) 1 tab PO QID [facility] Stop: 05/04/19 08:59 Last Admin: 03/09/19 09:56 Dose: 1 tab Cholecalciferol (Vitamin D3) 2,000 iu PO DAILY [facility] Stop: 05/04/19 08:59 Last Admin: 03/09/19 09:58 Dose: 2,000 iu Doxycycline Hyclate (Vibramycin) 100 mg PO BID [facility] Stop: 05/04/19 08:59 Last Admin: 03/09/19 09:58 Dose: 100 mg Fluoxetine HCl (Prozac) 20 mg PO DAILY [facility]; Protocol Stop: 05/04/19 08:59 Last Admin: 03/09/19 09:55 Dose: 20 mg Gabapentin (Neurontin) 300 mg PO TID [facility] Stop: 05/04/19 08:59 Last Admin: 03/09/19 09:59 Dose: 300 mg Haloperidol Lactate (Haldol Concentrate 10mg/5ml Susp) 5 mg PO Q6HR PRN; Protocol PRN Reason: Agitation Stop: 05/04/19 05:59 Last Admin: 03/06/19 08:42 Dose: 5 mg Lorazepam (Ativan) 0.5 mg PO Q4HR PRN; Protocol PRN Reason: Anxiety Stop: 04/04/19 04:51 Last Admin: 03/09/19 09:56 Dose: 0.5 mg Magnesium Hydroxide (Milk Of Magnesia) 30 ml PO HS PRN PRN Reason: Constipation Memantine (Namenda) 5 mg PO DAILY [facility] Stop: 05/05/19 08:59 Last Admin: 03/09/19 09:56 Dose: 5 mg Miscellaneous (Pimavanserin Tartrate [Nuplazid]) 1 tab PO BID [facility] Stop: 05/04/19 08:59 Multivitamins/Vitamin C (Theragran) 1 tab PO DAILY [facility] Stop: 05/04/19 08:59 Last Admin: 03/09/19 09:59 Dose: 1 tab Pantoprazole Sodium (Protonix) 40 mg PO QDAC [facility] Stop: 05/04/19 07:59 Last Admin: 03/09/19 06:35 Dose: 40 mg Pramipexole Dihydrochloride (Mirapex) 0.5 mg PO TID [facility]; Protocol Stop: 05/04/19 08:59 Last Admin: 03/09/19 09:56 Dose: 0.5 mg Risperidone (Risperdal) 0.5 mg PO BID [facility]; Protocol Stop: 05/05/19 16:59 Last Admin: 03/09/19 09:57 Dose: 0.5 mg Tizanidine HCl (Zanaflex) 4 mg PO TID [facility] Stop: 05/04/19 08:59 Last Admin: 03/09/19 09:57 Dose: 4 mg Zolpidem Tartrate (Ambien) 5 mg PO HS PRN PRN Reason: Insomnia Stop: 05/04/19 04:51 Last Admin: 03/06/19 20:30 Dose: 5 mg General: demented HEENT: NC/AT, PERRLA, EOMI, anicteric sclerae, throat clear Neck: Supple, No JVD, No thyromegaly, +2 carotid pulse wo bruit, No LAD, + JVD Lungs: CTAB Cardiovascular: RRR, Normal S1, Normal S2, without murmur Abdomen: soft, non-tender, non-distended Neurological: no change Internal Medicine Assmt/Plan - Assessment Assessment: 1.DJD. 2.CONSTIPATION. 3.DEMENTIA - Plan Plan: CONTINUE ON CURRENT MEDICATION AND DIET. Nutritional Asmnt/Malnutr-PDOC - Dietary Evaluation Malnutrition Findings (Please click <Entered> for more info): Nutritional Asmnt/Malnutrition Start: 03/08/19 08: 25 Text: Status: Complete Freq: Protocol: Document 03/08/19 08:27 ALEXANDRAMIKHAIL (Rec: 03/08/19 08:52 ALO BRITNI- FNS1) Nutritional Asmnt/Malnutrition Patient General Information Nutritional Screening Moderate Risk Diagnosis Psychosis Pertinent Medical Hx/Surgical Hx Parkinson's disease, degernerative joint disease, dementia Subjective Information Admitted from [facility]. Patient not in room at time of visit. Current Diet Order/ Nutrition Support Pureed Patient / S.O Not Indicated Pertinent Medications maalox, vitamin D, MOM, Theragran, protonix Pertinent Labs (03/05) Albumin 3.2, BNP 128 Nutritional Hx/Data Height 1.75 m Height (Calculated Centimeters) 175.3 Current Weight (lbs) 83.007 kg Weight (Calculated Kilograms) 83.0 Weight (Calculated Grams) 36583.4 [place] Body Weight 160 % [place] Body Weight 114 Body Mass Index (BMI) 27.0 Recent Weight Change No Weight Status Overweight GI Symptoms GI Symptoms None Last BM 03/06 x 1 Difficult in: None Food Allergies No Cultural/Ethnic/Confucianist Belief none indicated Usual diet at home unknown Skin Integrity/Comment: [place] 18, abrasion on both knees, wound Current %PO Good (75-100%) Estimated Nutritional Goals BEE in Kcals: Using Current wt Calories/Kcals/Kg using CBW 83kg Kcals Calculated 3705-1301 kcal/day (22-27kcal/ kg) Protein: Using Current wt Protein g/k.8-1 gm/kg Protein Calculated ~65-85 gm/day Fluid: ml 8003-2324 ml/day Nutritional Problem 1. Problem Problem No nutrition related diagnosis Intervention/Recommendation Comments 1. Continue pureed diet as tolerated by patient. Expected Outcomes/Goals Expected Outcomes/Goals Oral intake >75% of meals, weight stable, nutrition related labs WNL F/U LR 03/15
[2019-03-10] MEDS: Pantoprazole 40 mg EC Tab PO SCH (06:39)
[2019-03-10] MEDS: Multivitamin Tab PO SCH (09:51)
[2019-03-10] MEDS: NYSTATIN 100000 UNITS/GM POWD TP SCH (18:59)
--- NOTE | 2019-03-10 20:11 | Internal Medicine Prog Note ---
Internal Medicine Subjective - Subjective Service Date: 03/10/19 Patient seen and examined:: with staff (HE FEELS WELL,NO PAIN OR SOB.) Patient is:: awake, verbal, talking, confused Per staff patient has:: no adverse event Internal Medicine Objective - Results Result Diagrams: 03/05/19 02:40 03/05/19 02:40 Recent Labs: Laboratory Last Values WBC 6.1 Th/cmm (4.8-10.8) 03/05/19 02:40 RBC 4.48 Mil/cmm (3.80-5.80) 03/05/19 02:40 Hgb 13.5 gm/dL (12-16) 03/05/19 02:40 Hct 40.9 % (41.0-60) L 03/05/19 02:40 MCV 91.2 fl (80-99) 03/05/19 02:40 MCH 30.2 pg (27.0-31.0) 03/05/19 02:40 MCHC Differential 33.1 pg (28.0-36.0) 03/05/19 02:40 RDW 13.7 % (11.5-20.0) 03/05/19 02:40 Plt Count 247 Th/cmm (150-400) 03/05/19 02:40 MPV 7.7 fl 03/05/19 02:40 Neutrophils % 80.5 % (40.0-80.0) H 03/05/19 02:40 Lymphocytes % 11.6 % (20.0-50.0) L 03/05/19 02:40 Monocytes % 4.0 % (2.0-10.0) 03/05/19 02:40 Eosinophils % 3.1 % (0.0-5.0) 03/05/19 02:40 Basophils % 0.8 % (0.0-2.0) 03/05/19 02:40 Sodium 140 mEq/L (136-145) 03/05/19 02:40 Potassium 3.5 mEq/L (3.5-5.1) 03/05/19 02:40 Chloride 105 mEq/L (98-107) 03/05/19 02:40 Carbon Dioxide 24.4 mEq/L (21.0-31.0) 03/05/19 02:40 Anion Gap 14.1 (7.0-16.0) 03/05/19 02:40 BUN 14 mg/dL (7-25) 03/05/19 02:40 Creatinine 0.7 mg/dL (0.7-1.3) 03/05/19 02:40 Est GFR ( Amer) TNP 03/05/19 02:40 Est GFR (Non-Af Amer) TNP 03/05/19 02:40 BUN/Creatinine Ratio 20.0 03/05/19 02:40 Glucose 95 mg/dL (70-105) 03/05/19 02:40 Calcium 8.9 mg/dL (8.6-10.3) 03/05/19 02:40 Total Bilirubin 0.8 mg/dL (0.3-1.0) 03/05/19 02:40 AST 23 U/L (13-39) 03/05/19 02:40 ALT 15 U/L (7-52) 03/05/19 02:40 Alkaline Phosphatase 46 U/L (34-104) 03/05/19 02:40 Troponin I 0.02 ng/mL (0.01-0.05) 03/05/19 02:40 B-Natriuretic Peptide 128.0 pg/mL (5.0-100.0) H 03/05/19 02:40 Total Protein 6.2 gm/dL (6.0-8.3) 03/05/19 02:40 Albumin 3.2 gm/dL (4.2-5.5) L 03/05/19 02:40 Globulin 3.0 gm/dL 03/05/19 02:40 Albumin/Globulin Ratio 1.1 (1.0-1.8) 03/05/19 02:40 Triglycerides 98 mg/dL (<150) 03/05/19 02:40 Cholesterol 153 mg/dL (<200) 03/05/19 02:40 LDL Cholesterol Direct 100 mg/dL (75-193) 03/05/19 02:40 HDL Cholesterol 41 mg/dL (23-92) 03/05/19 02:40 TSH 2.77 uIU/ml (0.34-5.60) 03/05/19 02:40 - Physical Exam Vitals and I&O: Vital Signs Temp 97.7 F 03/10/19 20:04 Pulse 88 03/10/19 20:04 Resp 19 03/10/19 20:04 BP 154/97 03/10/19 20:04 Pulse Ox 96 03/10/19 20:04 Intake & Output 03/10/19 03/10/19 03/11/19 06:59 18:59 06:59 Intake Total 120 240 Balance 120 240 Intake: Oral 120 240 Other: # Voids 3 2 # Bowel Movements 1 Active Medications: Current Medications Acetaminophen (Tylenol) 650 mg PO Q4HR PRN PRN Reason: Mild Pain / Temp above 100 Stop: 05/04/19 04:51 Acetaminophen/Hydrocodone Bitart ([place] 10 Mg/325 Mg) 1 tab PO Q6HR PRN PRN Reason: moderate pain Stop: 05/04/19 06:52 Al Hydrox/Mg Hydrox/Simethicone (Maalox) 30 ml PO Q4HR PRN PRN Reason: GI DISTRESS Stop: 05/04/19 04:51 Carbidopa/Levodopa (Sinemet 25 Mg-250 Mg) 1 tab PO QID [facility] Stop: 05/04/19 08:59 Last Admin: 03/10/19 17:18 Dose: 1 tab Cholecalciferol (Vitamin D3) 2,000 iu PO DAILY [facility] Stop: 05/04/19 08:59 Last Admin: 03/10/19 09:51 Dose: 2,000 iu Doxycycline Hyclate (Vibramycin) 100 mg PO BID [facility] Stop: 05/04/19 08:59 Last Admin: 03/10/19 17:18 Dose: 100 mg Fluoxetine HCl (Prozac) 20 mg PO DAILY [facility]; Protocol Stop: 05/04/19 08:59 Last Admin: 03/10/19 09:50 Dose: 20 mg Gabapentin (Neurontin) 300 mg PO TID [facility] Stop: 05/04/19 08:59 Last Admin: 03/10/19 13:17 Dose: 300 mg Haloperidol Lactate (Haldol Concentrate 10mg/5ml Susp) 5 mg PO Q6HR PRN; Protocol PRN Reason: Agitation Stop: 05/04/19 05:59 Last Admin: 03/06/19 08:42 Dose: 5 mg Lorazepam (Ativan) 0.5 mg PO Q4HR PRN; Protocol PRN Reason: Anxiety Stop: 04/04/19 04:51 Last Admin: 03/09/19 17:59 Dose: 0.5 mg Magnesium Hydroxide (Milk Of Magnesia) 30 ml PO HS PRN PRN Reason: Constipation Memantine (Namenda) 5 mg PO DAILY [facility] Stop: 05/05/19 08:59 Last Admin: 03/10/19 09:49 Dose: 5 mg Miscellaneous (Pimavanserin Tartrate [Nuplazid]) 1 tab PO BID [facility] Stop: 05/04/19 08:59 Multivitamins/Vitamin C (Theragran) 1 tab PO DAILY [facility] Stop: 05/04/19 08:59 Last Admin: 03/10/19 09:51 Dose: 1 tab Nystatin (Nystop) 0 units TP BID [facility] Stop: 05/09/19 16:59 Last Admin: 03/10/19 18:59 Dose: 100,000 units Pantoprazole Sodium (Protonix) 40 mg PO QDAC [facility] Stop: 05/04/19 07:59 Last Admin: 03/10/19 06:39 Dose: 40 mg Pramipexole Dihydrochloride (Mirapex) 0.5 mg PO TID [facility]; Protocol Stop: 05/04/19 08:59 Last Admin: 03/10/19 13:17 Dose: 0.5 mg Risperidone (Risperdal) 0.5 mg PO BID [facility]; Protocol Stop: 05/05/19 16:59 Last Admin: 03/10/19 17:18 Dose: 0.5 mg Tizanidine HCl (Zanaflex) 4 mg PO TID [facility] Stop: 05/04/19 08:59 Last Admin: 03/10/19 13:17 Dose: 4 mg Zolpidem Tartrate (Ambien) 5 mg PO HS PRN PRN Reason: Insomnia Stop: 05/04/19 04:51 Last Admin: 03/09/19 20:49 Dose: 5 mg General: demented HEENT: NC/AT, PERRLA, EOMI, anicteric sclerae, throat clear Neck: Supple, No JVD, No thyromegaly, +2 carotid pulse wo bruit, No LAD, + JVD Lungs: CTAB Cardiovascular: RRR, Normal S1, Normal S2, without murmur Abdomen: soft, non-tender, non-distended Neurological: no change Internal Medicine Assmt/Plan - Assessment Assessment: 1.DJD. 2.CONSTIPATION. 3.DEMENTIA - Plan Plan: CONTINUE ON CURRENT MEDICATION AND DIET. Nutritional Asmnt/Malnutr-PDOC - Dietary Evaluation Malnutrition Findings (Please click <Entered> for more info): Nutritional Asmnt/Malnutrition Start: 03/08/19 08: 25 Text: Status: Complete Freq: Protocol: Document 03/08/19 08:27 ALEXANDRAMIKHAIL (Rec: 03/08/19 08:52 ALO [id number]) Nutritional Asmnt/Malnutrition Patient General Information Nutritional Screening Moderate Risk Diagnosis Psychosis Pertinent Medical Hx/Surgical Hx Parkinson's disease, degernerative joint disease, dementia Subjective Information Admitted from [facility]. Patient not in room at time of visit. Current Diet Order/ Nutrition Support Pureed Patient / S.O Not Indicated Pertinent Medications maalox, vitamin D, MOM, Theragran, protonix Pertinent Labs (03/05) Albumin 3.2, BNP 128 Nutritional Hx/Data Height 1.75 m Height (Calculated Centimeters) 175.3 Current Weight (lbs) 83.007 kg Weight (Calculated Kilograms) 83.0 Weight (Calculated Grams) 76860.4 [place] Body Weight 160 % [place] Body Weight 114 Body Mass Index (BMI) 27.0 Recent Weight Change No Weight Status Overweight GI Symptoms GI Symptoms None Last BM 03/06 x 1 Difficult in: None Food Allergies No Cultural/Ethnic/Zoroastrianism Belief none indicated Usual diet at home unknown Skin Integrity/Comment: [place] 18, abrasion on both knees, wound Current %PO Good (75-100%) Estimated Nutritional Goals BEE in Kcals: Using Current wt Calories/Kcals/Kg using CBW 83kg Kcals Calculated 9495-1905 kcal/day (22-27kcal/ kg) Protein: Using Current wt Protein g/k.8-1 gm/kg Protein Calculated ~65-85 gm/day Fluid: ml 1931-4897 ml/day Nutritional Problem 1. Problem Problem No nutrition related diagnosis Intervention/Recommendation Comments 1. Continue pureed diet as tolerated by patient. Expected Outcomes/Goals Expected Outcomes/Goals Oral intake >75% of meals, weight stable, nutrition related labs WNL F/U LR 03/15
--- NOTE | 2019-03-11 00:50 | Progress Notes ---
DATE: 03/10/2019 SUBJECTIVE: The patient remains demented, confused, disoriented. We are trying to confirm placement. The patient remains impulsive, unpredictable, ongoing concerns about agitation, AO to name only, very forgetful, coming and grandson coming. We will continue to monitor ongoing concerns about impulsivity, seems to be doing well with current dosing of Risperdal. No medication side effects, no EPS for example. [facility]# [id number]
[2019-03-11] MEDS: Pantoprazole 40 mg EC Tab PO SCH (06:33)
[2019-03-11] MEDS: Multivitamin Tab PO SCH (08:23)
[2019-03-11] MEDS: NYSTATIN 100000 UNITS/GM POWD TP SCH ×2 (09:19→16:20)
--- NOTE | 2019-03-11 20:33 | Internal Medicine Prog Note ---
Internal Medicine Subjective - Subjective Service Date: 03/11/19 Patient seen and examined:: without staff Patient is:: awake, verbal, talking, confused Per staff patient has:: no adverse event Internal Medicine Objective - Results Result Diagrams: 03/05/19 02:40 03/05/19 02:40 Recent Labs: Laboratory Last Values WBC 6.1 Th/cmm (4.8-10.8) 03/05/19 02:40 RBC 4.48 Mil/cmm (3.80-5.80) 03/05/19 02:40 Hgb 13.5 gm/dL (12-16) 03/05/19 02:40 Hct 40.9 % (41.0-60) L 03/05/19 02:40 MCV 91.2 fl (80-99) 03/05/19 02:40 MCH 30.2 pg (27.0-31.0) 03/05/19 02:40 MCHC Differential 33.1 pg (28.0-36.0) 03/05/19 02:40 RDW 13.7 % (11.5-20.0) 03/05/19 02:40 Plt Count 247 Th/cmm (150-400) 03/05/19 02:40 MPV 7.7 fl 03/05/19 02:40 Neutrophils % 80.5 % (40.0-80.0) H 03/05/19 02:40 Lymphocytes % 11.6 % (20.0-50.0) L 03/05/19 02:40 Monocytes % 4.0 % (2.0-10.0) 03/05/19 02:40 Eosinophils % 3.1 % (0.0-5.0) 03/05/19 02:40 Basophils % 0.8 % (0.0-2.0) 03/05/19 02:40 Sodium 140 mEq/L (136-145) 03/05/19 02:40 Potassium 3.5 mEq/L (3.5-5.1) 03/05/19 02:40 Chloride 105 mEq/L (98-107) 03/05/19 02:40 Carbon Dioxide 24.4 mEq/L (21.0-31.0) 03/05/19 02:40 Anion Gap 14.1 (7.0-16.0) 03/05/19 02:40 BUN 14 mg/dL (7-25) 03/05/19 02:40 Creatinine 0.7 mg/dL (0.7-1.3) 03/05/19 02:40 Est GFR ( Amer) TNP 03/05/19 02:40 Est GFR (Non-Af Amer) TNP 03/05/19 02:40 BUN/Creatinine Ratio 20.0 03/05/19 02:40 Glucose 95 mg/dL (70-105) 03/05/19 02:40 Calcium 8.9 mg/dL (8.6-10.3) 03/05/19 02:40 Total Bilirubin 0.8 mg/dL (0.3-1.0) 03/05/19 02:40 AST 23 U/L (13-39) 03/05/19 02:40 ALT 15 U/L (7-52) 03/05/19 02:40 Alkaline Phosphatase 46 U/L (34-104) 03/05/19 02:40 Troponin I 0.02 ng/mL (0.01-0.05) 03/05/19 02:40 B-Natriuretic Peptide 128.0 pg/mL (5.0-100.0) H 03/05/19 02:40 Total Protein 6.2 gm/dL (6.0-8.3) 03/05/19 02:40 Albumin 3.2 gm/dL (4.2-5.5) L 03/05/19 02:40 Globulin 3.0 gm/dL 03/05/19 02:40 Albumin/Globulin Ratio 1.1 (1.0-1.8) 03/05/19 02:40 Triglycerides 98 mg/dL (<150) 03/05/19 02:40 Cholesterol 153 mg/dL (<200) 03/05/19 02:40 LDL Cholesterol Direct 100 mg/dL (75-193) 03/05/19 02:40 HDL Cholesterol 41 mg/dL (23-92) 03/05/19 02:40 TSH 2.77 uIU/ml (0.34-5.60) 03/05/19 02:40 - Physical Exam Vitals and I&O: Vital Signs Temp 98.6 F 03/11/19 20:20 Pulse 87 03/11/19 20:20 Resp 18 03/11/19 20:20 BP 156/67 03/11/19 20:20 Pulse Ox 96 03/11/19 20:20 Intake & Output 03/11/19 03/11/19 03/12/19 06:59 18:59 06:59 Intake Total 240 900 120 Balance 240 900 120 Intake: Oral 240 900 120 Other: # Voids 3 3 # Bowel Movements 0 1 Active Medications: Current Medications Acetaminophen (Tylenol) 650 mg PO Q4HR PRN PRN Reason: Mild Pain / Temp above 100 Stop: 05/04/19 04:51 Acetaminophen/Hydrocodone Bitart ([place] 10 Mg/325 Mg) 1 tab PO Q6HR PRN PRN Reason: moderate pain Stop: 05/04/19 06:52 Al Hydrox/Mg Hydrox/Simethicone (Maalox) 30 ml PO Q4HR PRN PRN Reason: GI DISTRESS Stop: 05/04/19 04:51 Carbidopa/Levodopa (Sinemet 25 Mg-250 Mg) 1 tab PO QID [facility] Stop: 05/04/19 08:59 Last Admin: 03/11/19 16:11 Dose: 1 tab Cholecalciferol (Vitamin D3) 2,000 iu PO DAILY [facility] Stop: 05/04/19 08:59 Last Admin: 03/11/19 08:23 Dose: 2,000 iu Doxycycline Hyclate (Vibramycin) 100 mg PO BID [facility] Stop: 05/04/19 08:59 Last Admin: 03/11/19 16:11 Dose: 100 mg Fluoxetine HCl (Prozac) 20 mg PO DAILY [facility]; Protocol Stop: 05/04/19 08:59 Last Admin: 03/11/19 08:23 Dose: 20 mg Gabapentin (Neurontin) 300 mg PO TID [facility] Stop: 05/04/19 08:59 Last Admin: 03/11/19 15:00 Dose: 300 mg Haloperidol Lactate (Haldol Concentrate 10mg/5ml Susp) 5 mg PO Q6HR PRN; Protocol PRN Reason: Agitation Stop: 05/04/19 05:59 Last Admin: 03/06/19 08:42 Dose: 5 mg Lorazepam (Ativan) 0.5 mg PO Q4HR PRN; Protocol PRN Reason: Anxiety Stop: 04/04/19 04:51 Last Admin: 03/09/19 17:59 Dose: 0.5 mg Magnesium Hydroxide (Milk Of Magnesia) 30 ml PO HS PRN PRN Reason: Constipation Memantine (Namenda) 5 mg PO DAILY [facility] Stop: 05/05/19 08:59 Last Admin: 03/11/19 08:23 Dose: 5 mg Miscellaneous (Pimavanserin Tartrate [Nuplazid]) 1 tab PO BID [facility] Stop: 05/04/19 08:59 Multivitamins/Vitamin C (Theragran) 1 tab PO DAILY [facility] Stop: 05/04/19 08:59 Last Admin: 03/11/19 08:23 Dose: 1 tab Nystatin (Nystop) 0 units TP BID [facility] Stop: 05/09/19 16:59 Last Admin: 03/11/19 16:20 Dose: 100,000 units Pantoprazole Sodium (Protonix) 40 mg PO QDAC [facility] Stop: 05/04/19 07:59 Last Admin: 03/11/19 06:33 Dose: 40 mg Pramipexole Dihydrochloride (Mirapex) 0.5 mg PO TID [facility]; Protocol Stop: 05/04/19 08:59 Last Admin: 03/11/19 15:00 Dose: 0.5 mg Risperidone (Risperdal) 0.5 mg PO BID [facility]; Protocol Stop: 05/05/19 16:59 Last Admin: 03/11/19 16:11 Dose: 0.5 mg Tizanidine HCl (Zanaflex) 4 mg PO TID [facility] Stop: 05/04/19 08:59 Last Admin: 03/11/19 15:00 Dose: 4 mg Zolpidem Tartrate (Ambien) 5 mg PO HS PRN PRN Reason: Insomnia Stop: 05/04/19 04:51 Last Admin: 03/09/19 20:49 Dose: 5 mg General: demented HEENT: NC/AT, PERRLA, EOMI, anicteric sclerae, throat clear Neck: Supple, No JVD, No thyromegaly, +2 carotid pulse wo bruit, No LAD, + JVD Lungs: CTAB Cardiovascular: RRR, Normal S1, Normal S2, without murmur Abdomen: soft, non-tender, non-distended Neurological: no change Internal Medicine Assmt/Plan - Assessment Assessment: 1.DJD. 2.CONSTIPATION. 3.DEMENTIA - Plan Plan: CONTINUE ON CURRENT MEDICATION AND DIET. Nutritional Asmnt/Malnutr-PDOC - Dietary Evaluation Malnutrition Findings (Please click <Entered> for more info): Nutritional Asmnt/Malnutrition Start: 03/08/19 08: 25 Text: Status: Complete Freq: Protocol: Document 03/08/19 08:27 ALEXANDRAMIKHAIL (Rec: 03/08/19 08:52 ALO BRITNI- [email or web address]) Nutritional Asmnt/Malnutrition Patient General Information Nutritional Screening Moderate Risk Diagnosis Psychosis Pertinent Medical Hx/Surgical Hx Parkinson's disease, degernerative joint disease, dementia Subjective Information Admitted from [facility]. Patient not in room at time of visit. Current Diet Order/ Nutrition Support Pureed Patient / S.O Not Indicated Pertinent Medications maalox, vitamin D, MOM, Theragran, protonix Pertinent Labs (03/05) Albumin 3.2, BNP 128 Nutritional Hx/Data Height 1.75 m Height (Calculated Centimeters) 175.3 Current Weight (lbs) 83.007 kg Weight (Calculated Kilograms) 83.0 Weight (Calculated Grams) 33498.4 [place] Body Weight 160 % [place] Body Weight 114 Body Mass Index (BMI) 27.0 Recent Weight Change No Weight Status Overweight GI Symptoms GI Symptoms None Last BM 03/06 x 1 Difficult in: None Food Allergies No Cultural/Ethnic/Zoroastrian Belief none indicated Usual diet at home unknown Skin Integrity/Comment: [place] 18, abrasion on both knees, wound Current %PO Good (75-100%) Estimated Nutritional Goals BEE in Kcals: Using Current wt Calories/Kcals/Kg using CBW 83kg Kcals Calculated 0303-9531 kcal/day (22-27kcal/ kg) Protein: Using Current wt Protein g/k.8-1 gm/kg Protein Calculated ~65-85 gm/day Fluid: ml 8157-7246 ml/day Nutritional Problem 1. Problem Problem No nutrition related diagnosis Intervention/Recommendation Comments 1. Continue pureed diet as tolerated by patient. Expected Outcomes/Goals Expected Outcomes/Goals Oral intake >75% of meals, weight stable, nutrition related labs WNL F/U LR 03/15
--- NOTE | 2019-03-11 22:10 | Progress Notes ---
DATE: 03/11/2019 SUBJECTIVE: The patient is currently in the hospital, very confused, highly impulsive, can be aggressive, easily irritable, and agitated. Family cannot take him home, hoping for placement. Fair sleep and appetite. Sleeping now. Sleeping, but arousable. Ongoing forgetfulness and poor impulse control. ASSESSMENT: The patient unruly, poor impulse control, acts out upon his impulses, recent dose increase of Risperdal. PLAN: We will continue to monitor and given his behaviors, ongoing safety concerns he is not safe for a lower level of care at this time. [facility]# [id number]
[2019-03-12] MEDS: Pantoprazole 40 mg EC Tab PO SCH (07:04)
[2019-03-12] MEDS: NYSTATIN 100000 UNITS/GM POWD TP SCH ×2 (09:00→16:33)
[2019-03-12] MEDS: Multivitamin Tab PO SCH (09:21)
--- NOTE | 2019-03-12 22:32 | Internal Medicine Prog Note ---
Internal Medicine Subjective - Subjective Service Date: 03/12/19 Patient seen and examined:: without staff (HE DENIES ANY PAIN OR SOB.) Patient is:: awake, verbal, talking, confused Per staff patient has:: no adverse event Internal Medicine Objective - Results Result Diagrams: 03/05/19 02:40 03/05/19 02:40 Recent Labs: Laboratory Last Values WBC 6.1 Th/cmm (4.8-10.8) 03/05/19 02:40 RBC 4.48 Mil/cmm (3.80-5.80) 03/05/19 02:40 Hgb 13.5 gm/dL (12-16) 03/05/19 02:40 Hct 40.9 % (41.0-60) L 03/05/19 02:40 MCV 91.2 fl (80-99) 03/05/19 02:40 MCH 30.2 pg (27.0-31.0) 03/05/19 02:40 MCHC Differential 33.1 pg (28.0-36.0) 03/05/19 02:40 RDW 13.7 % (11.5-20.0) 03/05/19 02:40 Plt Count 247 Th/cmm (150-400) 03/05/19 02:40 MPV 7.7 fl 03/05/19 02:40 Neutrophils % 80.5 % (40.0-80.0) H 03/05/19 02:40 Lymphocytes % 11.6 % (20.0-50.0) L 03/05/19 02:40 Monocytes % 4.0 % (2.0-10.0) 03/05/19 02:40 Eosinophils % 3.1 % (0.0-5.0) 03/05/19 02:40 Basophils % 0.8 % (0.0-2.0) 03/05/19 02:40 Sodium 140 mEq/L (136-145) 03/05/19 02:40 Potassium 3.5 mEq/L (3.5-5.1) 03/05/19 02:40 Chloride 105 mEq/L (98-107) 03/05/19 02:40 Carbon Dioxide 24.4 mEq/L (21.0-31.0) 03/05/19 02:40 Anion Gap 14.1 (7.0-16.0) 03/05/19 02:40 BUN 14 mg/dL (7-25) 03/05/19 02:40 Creatinine 0.7 mg/dL (0.7-1.3) 03/05/19 02:40 Est GFR ( Amer) TNP 03/05/19 02:40 Est GFR (Non-Af Amer) TNP 03/05/19 02:40 BUN/Creatinine Ratio 20.0 03/05/19 02:40 Glucose 95 mg/dL (70-105) 03/05/19 02:40 Calcium 8.9 mg/dL (8.6-10.3) 03/05/19 02:40 Total Bilirubin 0.8 mg/dL (0.3-1.0) 03/05/19 02:40 AST 23 U/L (13-39) 03/05/19 02:40 ALT 15 U/L (7-52) 03/05/19 02:40 Alkaline Phosphatase 46 U/L (34-104) 03/05/19 02:40 Troponin I 0.02 ng/mL (0.01-0.05) 03/05/19 02:40 B-Natriuretic Peptide 128.0 pg/mL (5.0-100.0) H 03/05/19 02:40 Total Protein 6.2 gm/dL (6.0-8.3) 03/05/19 02:40 Albumin 3.2 gm/dL (4.2-5.5) L 03/05/19 02:40 Globulin 3.0 gm/dL 03/05/19 02:40 Albumin/Globulin Ratio 1.1 (1.0-1.8) 03/05/19 02:40 Triglycerides 98 mg/dL (<150) 03/05/19 02:40 Cholesterol 153 mg/dL (<200) 03/05/19 02:40 LDL Cholesterol Direct 100 mg/dL (75-193) 03/05/19 02:40 HDL Cholesterol 41 mg/dL (23-92) 03/05/19 02:40 TSH 2.77 uIU/ml (0.34-5.60) 03/05/19 02:40 - Physical Exam Vitals and I&O: Vital Signs Temp 97.6 F 03/12/19 20:00 Pulse 88 03/12/19 20:00 Resp 18 03/12/19 20:00 BP 145/88 03/12/19 20:00 Pulse Ox 97 03/12/19 20:00 Intake & Output 03/12/19 03/12/19 03/13/19 06:59 18:59 06:59 Intake Total 120 Balance 120 Intake: Oral 120 Other: # Voids 2 # Bowel Movements 0 Stool Characteristics Soft Formed Active Medications: Current Medications Acetaminophen (Tylenol) 650 mg PO Q4HR PRN PRN Reason: Mild Pain / Temp above 100 Stop: 05/04/19 04:51 Acetaminophen/Hydrocodone Bitart ([place] 10 Mg/325 Mg) 1 tab PO Q6HR PRN PRN Reason: moderate pain Stop: 05/04/19 06:52 Al Hydrox/Mg Hydrox/Simethicone (Maalox) 30 ml PO Q4HR PRN PRN Reason: GI DISTRESS Stop: 05/04/19 04:51 Carbidopa/Levodopa (Sinemet 25 Mg-250 Mg) 1 tab PO QID [facility] Stop: 05/04/19 08:59 Last Admin: 03/12/19 20:47 Dose: 1 tab Cholecalciferol (Vitamin D3) 2,000 iu PO DAILY [facility] Stop: 05/04/19 08:59 Last Admin: 03/12/19 09:20 Dose: 2,000 iu Fluoxetine HCl (Prozac) 20 mg PO DAILY [facility]; Protocol Stop: 05/04/19 08:59 Last Admin: 03/12/19 09:19 Dose: 20 mg Gabapentin (Neurontin) 300 mg PO TID [facility] Stop: 05/04/19 08:59 Last Admin: 03/12/19 20:48 Dose: 300 mg Haloperidol Lactate (Haldol Concentrate 10mg/5ml Susp) 5 mg PO Q6HR PRN; Protocol PRN Reason: Agitation Stop: 05/04/19 05:59 Last Admin: 03/06/19 08:42 Dose: 5 mg Lorazepam (Ativan) 0.5 mg PO Q4HR PRN; Protocol PRN Reason: Anxiety Stop: 04/04/19 04:51 Last Admin: 03/12/19 16:38 Dose: 0.5 mg Magnesium Hydroxide (Milk Of Magnesia) 30 ml PO HS PRN PRN Reason: Constipation Memantine (Namenda) 5 mg PO DAILY [facility] Stop: 05/05/19 08:59 Last Admin: 03/12/19 09:19 Dose: 5 mg Miscellaneous (Pimavanserin Tartrate [Nuplazid]) 1 tab PO BID [facility] Stop: 05/04/19 08:59 Multivitamins/Vitamin C (Theragran) 1 tab PO DAILY [facility] Stop: 05/04/19 08:59 Last Admin: 03/12/19 09:21 Dose: 1 tab Nystatin (Nystop) 0 units TP BID [facility] Stop: 05/09/19 16:59 Last Admin: 03/12/19 16:33 Dose: 100,000 units Pantoprazole Sodium (Protonix) 40 mg PO QDAC [facility] Stop: 05/04/19 07:59 Last Admin: 03/12/19 07:04 Dose: 40 mg Pramipexole Dihydrochloride (Mirapex) 0.5 mg PO TID [facility]; Protocol Stop: 05/04/19 08:59 Last Admin: 03/12/19 20:47 Dose: 0.5 mg Risperidone (Risperdal) 0.5 mg PO BID [facility]; Protocol Stop: 05/05/19 16:59 Last Admin: 03/12/19 16:36 Dose: 0.5 mg Tizanidine HCl (Zanaflex) 4 mg PO TID [facility] Stop: 05/04/19 08:59 Last Admin: 03/12/19 20:48 Dose: 4 mg Zolpidem Tartrate (Ambien) 5 mg PO HS PRN PRN Reason: Insomnia Stop: 05/04/19 04:51 Last Admin: 03/09/19 20:49 Dose: 5 mg General: demented HEENT: NC/AT, PERRLA, EOMI, anicteric sclerae, throat clear Neck: Supple, No JVD, No thyromegaly, +2 carotid pulse wo bruit, No LAD, + JVD Lungs: CTAB Cardiovascular: RRR, Normal S1, Normal S2, without murmur Abdomen: soft, non-tender, non-distended Neurological: no change Internal Medicine Assmt/Plan - Assessment Assessment: 1.DJD. 2.CONSTIPATION. 3.DEMENTIA - Plan Plan: CONTINUE ON CURRENT MEDICATION AND DIET. Nutritional Asmnt/Malnutr-PDOC - Dietary Evaluation Malnutrition Findings (Please click <Entered> for more info): Nutritional Asmnt/Malnutrition Start: 03/08/19 08: 25 Text: Status: Complete Freq: Protocol: Document 03/08/19 08:27 ALO (Rec: 03/08/19 08:52 ALO BRITNI- [email or web address]) Nutritional Asmnt/Malnutrition Patient General Information Nutritional Screening Moderate Risk Diagnosis Psychosis Pertinent Medical Hx/Surgical Hx Parkinson's disease, degernerative joint disease, dementia Subjective Information Admitted from [facility]. Patient not in room at time of visit. Current Diet Order/ Nutrition Support Pureed Patient / S.O Not Indicated Pertinent Medications maalox, vitamin D, MOM, Theragran, protonix Pertinent Labs (03/05) Albumin 3.2, BNP 128 Nutritional Hx/Data Height 1.75 m Height (Calculated Centimeters) 175.3 Current Weight (lbs) 83.007 kg Weight (Calculated Kilograms) 83.0 Weight (Calculated Grams) 05011.4 [place] Body Weight 160 % [place] Body Weight 114 Body Mass Index (BMI) 27.0 Recent Weight Change No Weight Status Overweight GI Symptoms GI Symptoms None Last BM 03/06 x 1 Difficult in: None Food Allergies No Cultural/Ethnic/[employer]ist Belief none indicated Usual diet at home unknown Skin Integrity/Comment: [place] 18, abrasion on both knees, wound Current %PO Good (75-100%) Estimated Nutritional Goals BEE in Kcals: Using Current wt Calories/Kcals/Kg using CBW 83kg Kcals Calculated 4852-8343 kcal/day (22-27kcal/ kg) Protein: Using Current wt Protein g/k.8-1 gm/kg Protein Calculated ~65-85 gm/day Fluid: ml 0200-0946 ml/day Nutritional Problem 1. Problem Problem No nutrition related diagnosis Intervention/Recommendation Comments 1. Continue pureed diet as tolerated by patient. Expected Outcomes/Goals Expected Outcomes/Goals Oral intake >75% of meals, weight stable, nutrition related labs WNL F/U LR 03/15
--- NOTE | 2019-03-12 23:20 | Progress Notes ---
DATE: 03/12/2019 The patient in hospital, very confused, impulsive, unpredictable. He is generally calmer over the past few days, but remains impulsive, concerns he may act out, being hypersexual, lash out at others. Staff noting he remains easily irritated, agitated, ongoing unpredictability. Fair sleep, appetite, in a Lala chair. We will continue to monitor, titrate medications. As noted ongoing concerns about safety, safety of others. JOB# [id number]
[2019-03-13] MEDS: Pantoprazole 40 mg EC Tab PO SCH (06:49)
[2019-03-13] MEDS: Multivitamin Tab PO SCH (08:53)
[2019-03-13] MEDS: NYSTATIN 100000 UNITS/GM POWD TP SCH ×2 (09:00→17:02)
--- NOTE | 2019-03-13 18:24 | Internal Medicine Prog Note ---
Internal Medicine Subjective - Subjective Service Date: 03/13/19 Patient seen and examined:: with staff Patient is:: awake, verbal, talking, confused Per staff patient has:: no adverse event Internal Medicine Objective - Results Result Diagrams: 03/05/19 02:40 03/05/19 02:40 Recent Labs: Laboratory Last Values WBC 6.1 Th/cmm (4.8-10.8) 03/05/19 02:40 RBC 4.48 Mil/cmm (3.80-5.80) 03/05/19 02:40 Hgb 13.5 gm/dL (12-16) 03/05/19 02:40 Hct 40.9 % (41.0-60) L 03/05/19 02:40 MCV 91.2 fl (80-99) 03/05/19 02:40 MCH 30.2 pg (27.0-31.0) 03/05/19 02:40 MCHC Differential 33.1 pg (28.0-36.0) 03/05/19 02:40 RDW 13.7 % (11.5-20.0) 03/05/19 02:40 Plt Count 247 Th/cmm (150-400) 03/05/19 02:40 MPV 7.7 fl 03/05/19 02:40 Neutrophils % 80.5 % (40.0-80.0) H 03/05/19 02:40 Lymphocytes % 11.6 % (20.0-50.0) L 03/05/19 02:40 Monocytes % 4.0 % (2.0-10.0) 03/05/19 02:40 Eosinophils % 3.1 % (0.0-5.0) 03/05/19 02:40 Basophils % 0.8 % (0.0-2.0) 03/05/19 02:40 Sodium 140 mEq/L (136-145) 03/05/19 02:40 Potassium 3.5 mEq/L (3.5-5.1) 03/05/19 02:40 Chloride 105 mEq/L (98-107) 03/05/19 02:40 Carbon Dioxide 24.4 mEq/L (21.0-31.0) 03/05/19 02:40 Anion Gap 14.1 (7.0-16.0) 03/05/19 02:40 BUN 14 mg/dL (7-25) 03/05/19 02:40 Creatinine 0.7 mg/dL (0.7-1.3) 03/05/19 02:40 Est GFR ( Amer) TNP 03/05/19 02:40 Est GFR (Non-Af Amer) TNP 03/05/19 02:40 BUN/Creatinine Ratio 20.0 03/05/19 02:40 Glucose 95 mg/dL (70-105) 03/05/19 02:40 Calcium 8.9 mg/dL (8.6-10.3) 03/05/19 02:40 Total Bilirubin 0.8 mg/dL (0.3-1.0) 03/05/19 02:40 AST 23 U/L (13-39) 03/05/19 02:40 ALT 15 U/L (7-52) 03/05/19 02:40 Alkaline Phosphatase 46 U/L (34-104) 03/05/19 02:40 Troponin I 0.02 ng/mL (0.01-0.05) 03/05/19 02:40 B-Natriuretic Peptide 128.0 pg/mL (5.0-100.0) H 03/05/19 02:40 Total Protein 6.2 gm/dL (6.0-8.3) 03/05/19 02:40 Albumin 3.2 gm/dL (4.2-5.5) L 03/05/19 02:40 Globulin 3.0 gm/dL 03/05/19 02:40 Albumin/Globulin Ratio 1.1 (1.0-1.8) 03/05/19 02:40 Triglycerides 98 mg/dL (<150) 03/05/19 02:40 Cholesterol 153 mg/dL (<200) 03/05/19 02:40 LDL Cholesterol Direct 100 mg/dL (75-193) 03/05/19 02:40 HDL Cholesterol 41 mg/dL (23-92) 03/05/19 02:40 TSH 2.77 uIU/ml (0.34-5.60) 03/05/19 02:40 - Physical Exam Vitals and I&O: Vital Signs Temp 97.6 F 03/13/19 14:00 Pulse 91 03/13/19 14:00 Resp 18 03/13/19 14:00 BP 104/72 03/13/19 14:00 Pulse Ox 98 03/13/19 14:00 Intake & Output 03/12/19 03/13/19 03/13/19 18:59 06:59 18:59 Intake Total 350 Balance 350 Intake: Oral 350 Other: # Voids 1 Active Medications: Current Medications Acetaminophen (Tylenol) 650 mg PO Q4HR PRN PRN Reason: Mild Pain / Temp above 100 Stop: 05/04/19 04:51 Acetaminophen/Hydrocodone Bitart ([place] 10 Mg/325 Mg) 1 tab PO Q6HR PRN PRN Reason: moderate pain Stop: 05/04/19 06:52 Al Hydrox/Mg Hydrox/Simethicone (Maalox) 30 ml PO Q4HR PRN PRN Reason: GI DISTRESS Stop: 05/04/19 04:51 Carbidopa/Levodopa (Sinemet 25 Mg-250 Mg) 1 tab PO QID [facility] Stop: 05/04/19 08:59 Last Admin: 03/13/19 17:01 Dose: 1 tab Cholecalciferol (Vitamin D3) 2,000 iu PO DAILY [facility] Stop: 05/04/19 08:59 Last Admin: 03/13/19 08:52 Dose: 2,000 iu Fluoxetine HCl (Prozac) 20 mg PO DAILY [facility]; Protocol Stop: 05/04/19 08:59 Last Admin: 03/13/19 08:53 Dose: 20 mg Gabapentin (Neurontin) 300 mg PO TID [facility] Stop: 05/04/19 08:59 Last Admin: 03/13/19 14:03 Dose: 300 mg Haloperidol Lactate (Haldol Concentrate 10mg/5ml Susp) 5 mg PO Q6HR PRN; Protocol PRN Reason: Agitation Stop: 05/04/19 05:59 Last Admin: 03/06/19 08:42 Dose: 5 mg Lorazepam (Ativan) 0.5 mg PO Q4HR PRN; Protocol PRN Reason: Anxiety Stop: 04/04/19 04:51 Last Admin: 03/12/19 16:38 Dose: 0.5 mg Magnesium Hydroxide (Milk Of Magnesia) 30 ml PO HS PRN PRN Reason: Constipation Memantine (Namenda) 5 mg PO DAILY [facility] Stop: 05/05/19 08:59 Last Admin: 03/13/19 08:53 Dose: 5 mg Miscellaneous (Pimavanserin Tartrate [Nuplazid]) 1 tab PO BID [facility] Stop: 05/04/19 08:59 Multivitamins/Vitamin C (Theragran) 1 tab PO DAILY [facility] Stop: 05/04/19 08:59 Last Admin: 03/13/19 08:53 Dose: 1 tab Nystatin (Nystop) 0 units TP BID [facility] Stop: 05/09/19 16:59 Last Admin: 03/13/19 17:02 Dose: 100,000 units Pantoprazole Sodium (Protonix) 40 mg PO QDAC [facility] Stop: 05/04/19 07:59 Last Admin: 03/13/19 06:49 Dose: 40 mg Pramipexole Dihydrochloride (Mirapex) 0.5 mg PO TID [facility]; Protocol Stop: 05/04/19 08:59 Last Admin: 03/13/19 14:03 Dose: 0.5 mg Risperidone (Risperdal) 0.5 mg PO BID [facility]; Protocol Stop: 05/05/19 16:59 Last Admin: 03/13/19 17:01 Dose: 0.5 mg Tizanidine HCl (Zanaflex) 4 mg PO TID [facility] Stop: 05/04/19 08:59 Last Admin: 03/13/19 14:03 Dose: 4 mg Zolpidem Tartrate (Ambien) 5 mg PO HS PRN PRN Reason: Insomnia Stop: 05/04/19 04:51 Last Admin: 03/09/19 20:49 Dose: 5 mg General: demented HEENT: NC/AT, PERRLA, EOMI, anicteric sclerae, throat clear Neck: Supple, No JVD, No thyromegaly, +2 carotid pulse wo bruit, No LAD, + JVD Lungs: CTAB Cardiovascular: RRR, Normal S1, Normal S2, without murmur Abdomen: soft, non-tender, non-distended Neurological: no change Internal Medicine Assmt/Plan - Assessment Assessment: 1.DJD. 2.CONSTIPATION. 3.DEMENTIA - Plan Plan: CONTINUE ON CURRENT MEDICATION AND DIET. Nutritional Asmnt/Malnutr-PDOC - Dietary Evaluation Malnutrition Findings (Please click <Entered> for more info): Nutritional Asmnt/Malnutrition Start: 03/08/19 08: 25 Text: Status: Complete Freq: Protocol: Document 03/08/19 08:27 ALEXANDRAMIKHAIL (Rec: 03/08/19 08:52 ALO [id number]) Nutritional Asmnt/Malnutrition Patient General Information Nutritional Screening Moderate Risk Diagnosis Psychosis Pertinent Medical Hx/Surgical Hx Parkinson's disease, degernerative joint disease, dementia Subjective Information Admitted from [facility]. Patient not in room at time of visit. Current Diet Order/ Nutrition Support Pureed Patient / S.O Not Indicated Pertinent Medications maalox, vitamin D, MOM, Theragran, protonix Pertinent Labs (03/05) Albumin 3.2, BNP 128 Nutritional Hx/Data Height 1.75 m Height (Calculated Centimeters) 175.3 Current Weight (lbs) 83.007 kg Weight (Calculated Kilograms) 83.0 Weight (Calculated Grams) 26565.4 Roper Body Weight 160 % Roper Body Weight 114 Body Mass Index (BMI) 27.0 Recent Weight Change No Weight Status Overweight GI Symptoms GI Symptoms None Last BM 03/06 x 1 Difficult in: None Food Allergies No Cultural/Ethnic/Yazdanism Belief none indicated Usual diet at home unknown Skin Integrity/Comment: [place] 18, abrasion on both knees, wound Current %PO Good (75-100%) Estimated Nutritional Goals BEE in Kcals: Using Current wt Calories/Kcals/Kg using CBW 83kg Kcals Calculated 7641-3702 kcal/day (22-27kcal/ kg) Protein: Using Current wt Protein g/k.8-1 gm/kg Protein Calculated ~65-85 gm/day Fluid: ml 0905-2924 ml/day Nutritional Problem 1. Problem Problem No nutrition related diagnosis Intervention/Recommendation Comments 1. Continue pureed diet as tolerated by patient. Expected Outcomes/Goals Expected Outcomes/Goals Oral intake >75% of meals, weight stable, nutrition related labs WNL F/U LR 03/15
[2019-03-14] MEDS: Pantoprazole 40 mg EC Tab PO SCH (06:40)
[2019-03-14] MEDS: NYSTATIN 100000 UNITS/GM POWD TP SCH ×2 (09:00→16:50)
[2019-03-14] MEDS: Multivitamin Tab PO SCH (09:00)
--- NOTE | 2019-03-14 11:53 | Internal Medicine Prog Note ---
Internal Medicine Subjective - Subjective Service Date: 03/14/19 Patient seen and examined:: without staff (HE IS DOING BETTER) Patient is:: awake, verbal, talking, confused Per staff patient has:: no adverse event Internal Medicine Objective - Results Result Diagrams: 03/05/19 02:40 03/05/19 02:40 Recent Labs: Laboratory Last Values WBC 6.1 Th/cmm (4.8-10.8) 03/05/19 02:40 RBC 4.48 Mil/cmm (3.80-5.80) 03/05/19 02:40 Hgb 13.5 gm/dL (12-16) 03/05/19 02:40 Hct 40.9 % (41.0-60) L 03/05/19 02:40 MCV 91.2 fl (80-99) 03/05/19 02:40 MCH 30.2 pg (27.0-31.0) 03/05/19 02:40 MCHC Differential 33.1 pg (28.0-36.0) 03/05/19 02:40 RDW 13.7 % (11.5-20.0) 03/05/19 02:40 Plt Count 247 Th/cmm (150-400) 03/05/19 02:40 MPV 7.7 fl 03/05/19 02:40 Neutrophils % 80.5 % (40.0-80.0) H 03/05/19 02:40 Lymphocytes % 11.6 % (20.0-50.0) L 03/05/19 02:40 Monocytes % 4.0 % (2.0-10.0) 03/05/19 02:40 Eosinophils % 3.1 % (0.0-5.0) 03/05/19 02:40 Basophils % 0.8 % (0.0-2.0) 03/05/19 02:40 Sodium 140 mEq/L (136-145) 03/05/19 02:40 Potassium 3.5 mEq/L (3.5-5.1) 03/05/19 02:40 Chloride 105 mEq/L (98-107) 03/05/19 02:40 Carbon Dioxide 24.4 mEq/L (21.0-31.0) 03/05/19 02:40 Anion Gap 14.1 (7.0-16.0) 03/05/19 02:40 BUN 14 mg/dL (7-25) 03/05/19 02:40 Creatinine 0.7 mg/dL (0.7-1.3) 03/05/19 02:40 Est GFR ( Amer) TNP 03/05/19 02:40 Est GFR (Non-Af Amer) TNP 03/05/19 02:40 BUN/Creatinine Ratio 20.0 03/05/19 02:40 Glucose 95 mg/dL (70-105) 03/05/19 02:40 Calcium 8.9 mg/dL (8.6-10.3) 03/05/19 02:40 Total Bilirubin 0.8 mg/dL (0.3-1.0) 03/05/19 02:40 AST 23 U/L (13-39) 03/05/19 02:40 ALT 15 U/L (7-52) 03/05/19 02:40 Alkaline Phosphatase 46 U/L (34-104) 03/05/19 02:40 Troponin I 0.02 ng/mL (0.01-0.05) 03/05/19 02:40 B-Natriuretic Peptide 128.0 pg/mL (5.0-100.0) H 03/05/19 02:40 Total Protein 6.2 gm/dL (6.0-8.3) 03/05/19 02:40 Albumin 3.2 gm/dL (4.2-5.5) L 03/05/19 02:40 Globulin 3.0 gm/dL 03/05/19 02:40 Albumin/Globulin Ratio 1.1 (1.0-1.8) 03/05/19 02:40 Triglycerides 98 mg/dL (<150) 03/05/19 02:40 Cholesterol 153 mg/dL (<200) 03/05/19 02:40 LDL Cholesterol Direct 100 mg/dL (75-193) 03/05/19 02:40 HDL Cholesterol 41 mg/dL (23-92) 03/05/19 02:40 TSH 2.77 uIU/ml (0.34-5.60) 03/05/19 02:40 - Physical Exam Vitals and I&O: Vital Signs Temp 97.8 F 03/14/19 06:24 Pulse 93 03/14/19 06:24 Resp 18 03/14/19 08:00 BP 118/93 03/14/19 06:24 Pulse Ox 97 03/14/19 06:24 Intake & Output 03/13/19 03/14/19 03/14/19 18:59 06:59 18:59 Intake Total 960 490 Balance 960 490 Intake: Oral 960 490 Other: # Voids 3 1 # Bowel Movements 1 Active Medications: Current Medications Acetaminophen (Tylenol) 650 mg PO Q4HR PRN PRN Reason: Mild Pain / Temp above 100 Stop: 05/04/19 04:51 Acetaminophen/Hydrocodone Bitart ([place] 10 Mg/325 Mg) 1 tab PO Q6HR PRN PRN Reason: moderate pain Stop: 05/04/19 06:52 Al Hydrox/Mg Hydrox/Simethicone (Maalox) 30 ml PO Q4HR PRN PRN Reason: GI DISTRESS Stop: 05/04/19 04:51 Carbidopa/Levodopa (Sinemet 25 Mg-250 Mg) 1 tab PO QID [facility] Stop: 05/04/19 08:59 Last Admin: 03/14/19 09:00 Dose: 1 tab Cholecalciferol (Vitamin D3) 2,000 iu PO DAILY [facility] Stop: 05/04/19 08:59 Last Admin: 03/14/19 09:00 Dose: 2,000 iu Fluoxetine HCl (Prozac) 20 mg PO DAILY [facility]; Protocol Stop: 05/04/19 08:59 Last Admin: 03/14/19 09:00 Dose: 20 mg Gabapentin (Neurontin) 300 mg PO TID [facility] Stop: 05/04/19 08:59 Last Admin: 03/14/19 08:59 Dose: 300 mg Haloperidol Lactate (Haldol Concentrate 10mg/5ml Susp) 5 mg PO Q6HR PRN; Protocol PRN Reason: Agitation Stop: 05/04/19 05:59 Last Admin: 03/06/19 08:42 Dose: 5 mg Lorazepam (Ativan) 0.5 mg PO Q4HR PRN; Protocol PRN Reason: Anxiety Stop: 04/04/19 04:51 Last Admin: 03/12/19 16:38 Dose: 0.5 mg Magnesium Hydroxide (Milk Of Magnesia) 30 ml PO HS PRN PRN Reason: Constipation Memantine (Namenda) 5 mg PO DAILY [facility] Stop: 05/05/19 08:59 Last Admin: 03/14/19 08:59 Dose: 5 mg Miscellaneous (Pimavanserin Tartrate [Nuplazid]) 1 tab PO BID [facility] Stop: 05/04/19 08:59 Multivitamins/Vitamin C (Theragran) 1 tab PO DAILY [facility] Stop: 05/04/19 08:59 Last Admin: 03/14/19 09:00 Dose: 1 tab Nystatin (Nystop) 0 units TP BID [facility] Stop: 05/09/19 16:59 Last Admin: 03/13/19 17:02 Dose: 100,000 units Pantoprazole Sodium (Protonix) 40 mg PO QDAC [facility] Stop: 05/04/19 07:59 Last Admin: 03/14/19 06:40 Dose: 40 mg Pramipexole Dihydrochloride (Mirapex) 0.5 mg PO TID [facility]; Protocol Stop: 05/04/19 08:59 Last Admin: 03/14/19 09:05 Dose: 0.5 mg Risperidone (Risperdal) 0.5 mg PO BID [facility]; Protocol Stop: 05/05/19 16:59 Last Admin: 03/14/19 09:00 Dose: 0.5 mg Tizanidine HCl (Zanaflex) 4 mg PO TID [facility] Stop: 05/04/19 08:59 Last Admin: 03/14/19 09:00 Dose: 4 mg Zolpidem Tartrate (Ambien) 5 mg PO HS PRN PRN Reason: Insomnia Stop: 05/04/19 04:51 Last Admin: 03/09/19 20:49 Dose: 5 mg General: demented HEENT: NC/AT, PERRLA, EOMI, anicteric sclerae, throat clear Neck: Supple, No JVD, No thyromegaly, +2 carotid pulse wo bruit, No LAD, + JVD Lungs: CTAB Cardiovascular: RRR, Normal S1, Normal S2, without murmur Abdomen: soft, non-tender, non-distended Neurological: no change Internal Medicine Assmt/Plan - Assessment Assessment: 1.DJD. 2.CONSTIPATION. 3.DEMENTIA - Plan Plan: CONTINUE ON CURRENT MEDICATION AND DIET. Nutritional Asmnt/Malnutr-PDOC - Dietary Evaluation Malnutrition Findings (Please click <Entered> for more info): Nutritional Asmnt/Malnutrition Start: 03/08/19 08: 25 Text: Status: Complete Freq: Protocol: Document 03/08/19 08:27 ALO (Rec: 03/08/19 08:52 ALO [email or web address]- [id number]) Nutritional Asmnt/Malnutrition Patient General Information Nutritional Screening Moderate Risk Diagnosis Psychosis Pertinent Medical Hx/Surgical Hx Parkinson's disease, degernerative joint disease, dementia Subjective Information Admitted from [facility]. Patient not in room at time of visit. Current Diet Order/ Nutrition Support Pureed Patient / S.O Not Indicated Pertinent Medications maalox, vitamin D, MOM, Theragran, protonix Pertinent Labs (03/05) Albumin 3.2, BNP 128 Nutritional Hx/Data Height 1.75 m Height (Calculated Centimeters) 175.3 Current Weight (lbs) 83.007 kg Weight (Calculated Kilograms) 83.0 Weight (Calculated Grams) 54717.4 [place] Body Weight 160 % [place] Body Weight 114 Body Mass Index (BMI) 27.0 Recent Weight Change No Weight Status Overweight GI Symptoms GI Symptoms None Last BM 03/06 x 1 Difficult in: None Food Allergies No Cultural/Ethnic/Rastafari Belief none indicated Usual diet at home unknown Skin Integrity/Comment: [place] 18, abrasion on both knees, wound Current %PO Good (75-100%) Estimated Nutritional Goals BEE in Kcals: Using Current wt Calories/Kcals/Kg using CBW 83kg Kcals Calculated 2339-6161 kcal/day (22-27kcal/ kg) Protein: Using Current wt Protein g/k.8-1 gm/kg Protein Calculated ~65-85 gm/day Fluid: ml 9016-2978 ml/day Nutritional Problem 1. Problem Problem No nutrition related diagnosis Intervention/Recommendation Comments 1. Continue pureed diet as tolerated by patient. Expected Outcomes/Goals Expected Outcomes/Goals Oral intake >75% of meals, weight stable, nutrition related labs WNL F/U LR 03/15
--- NOTE | 2019-03-14 13:43 | Progress Notes ---
DATE: 03/13/2019 The patient in the hospital remains somewhat unruly, impulsive, unpredictable, but he does seem to be showing some signs of improvement, generally calmer, no overt agitation, no overt escalation of behavior, seems to be getting along better with the staff. He is tolerant of the medications. We are currently attempting to find him a safe place to go as he cannot take care of himself and is completely unable to care of him because he is pretty aggressive at home. We will continue to monitor and adjust medications. [facility]# [id number]
--- NOTE | 2019-03-15 03:47 | Progress Notes ---
DATE: 03/14/2019 SUBJECTIVE: The patient has confirmed placement at ____ [facility]. The patient seems to be generally calmer, more cooperative, less unruly; staff noting some improvement in behaviors, still very confused, disoriented, impulsive, unpredictable, but more easily redirectable, AO to name only. ASSESSMENT: The patient is somewhat calmer, less aggressive, less agitated, less concerns about hypersexual behaviors. We will continue to monitor. The patient as of yet does not have confirmed discharge plan and is unable to take him home given how aggressive he was at home. JOB# [id number]
[2019-03-15] MEDS: Pantoprazole 40 mg EC Tab PO SCH (06:40)
[2019-03-15] MEDS: Multivitamin Tab PO SCH (09:10)
[2019-03-15] MEDS: NYSTATIN 100000 UNITS/GM POWD TP SCH ×2 (09:12→17:00)
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
--- NOTE | 2019-03-15 19:09 | General Progress Note ---
Subjective - Review of Systems Service Date: 03/15/19 Subjective: resting comfortably no distress Objective - Results Result Diagrams: 03/05/19 02:40 03/05/19 02:40 Recent Labs: Laboratory Last Values WBC 6.1 Th/cmm (4.8-10.8) 03/05/19 02:40 RBC 4.48 Mil/cmm (3.80-5.80) 03/05/19 02:40 Hgb 13.5 gm/dL (12-16) 03/05/19 02:40 Hct 40.9 % (41.0-60) L 03/05/19 02:40 MCV 91.2 fl (80-99) 03/05/19 02:40 MCH 30.2 pg (27.0-31.0) 03/05/19 02:40 MCHC Differential 33.1 pg (28.0-36.0) 03/05/19 02:40 RDW 13.7 % (11.5-20.0) 03/05/19 02:40 Plt Count 247 Th/cmm (150-400) 03/05/19 02:40 MPV 7.7 fl 03/05/19 02:40 Neutrophils % 80.5 % (40.0-80.0) H 03/05/19 02:40 Lymphocytes % 11.6 % (20.0-50.0) L 03/05/19 02:40 Monocytes % 4.0 % (2.0-10.0) 03/05/19 02:40 Eosinophils % 3.1 % (0.0-5.0) 03/05/19 02:40 Basophils % 0.8 % (0.0-2.0) 03/05/19 02:40 Sodium 140 mEq/L (136-145) 03/05/19 02:40 Potassium 3.5 mEq/L (3.5-5.1) 03/05/19 02:40 Chloride 105 mEq/L (98-107) 03/05/19 02:40 Carbon Dioxide 24.4 mEq/L (21.0-31.0) 03/05/19 02:40 Anion Gap 14.1 (7.0-16.0) 03/05/19 02:40 BUN 14 mg/dL (7-25) 03/05/19 02:40 Creatinine 0.7 mg/dL (0.7-1.3) 03/05/19 02:40 Est GFR ( Amer) TNP 03/05/19 02:40 Est GFR (Non-Af Amer) TNP 03/05/19 02:40 BUN/Creatinine Ratio 20.0 03/05/19 02:40 Glucose 95 mg/dL (70-105) 03/05/19 02:40 Calcium 8.9 mg/dL (8.6-10.3) 03/05/19 02:40 Total Bilirubin 0.8 mg/dL (0.3-1.0) 03/05/19 02:40 AST 23 U/L (13-39) 03/05/19 02:40 ALT 15 U/L (7-52) 03/05/19 02:40 Alkaline Phosphatase 46 U/L (34-104) 03/05/19 02:40 Troponin I 0.02 ng/mL (0.01-0.05) 03/05/19 02:40 B-Natriuretic Peptide 128.0 pg/mL (5.0-100.0) H 03/05/19 02:40 Total Protein 6.2 gm/dL (6.0-8.3) 03/05/19 02:40 Albumin 3.2 gm/dL (4.2-5.5) L 03/05/19 02:40 Globulin 3.0 gm/dL 03/05/19 02:40 Albumin/Globulin Ratio 1.1 (1.0-1.8) 03/05/19 02:40 Triglycerides 98 mg/dL (<150) 03/05/19 02:40 Cholesterol 153 mg/dL (<200) 03/05/19 02:40 LDL Cholesterol Direct 100 mg/dL (75-193) 03/05/19 02:40 HDL Cholesterol 41 mg/dL (23-92) 03/05/19 02:40 TSH 2.77 uIU/ml (0.34-5.60) 03/05/19 02:40 - Physical Exam Vitals and I&O: Vital Signs Temp 98.2 F 03/15/19 14:00 Pulse 89 03/15/19 14:00 Resp 18 03/15/19 14:00 BP 146/80 03/15/19 14:00 Pulse Ox 97 03/15/19 14:00 Intake & Output 03/15/19 03/15/19 03/16/19 06:59 18:59 06:59 Intake Total 240 900 Output Total 120 Balance 120 900 Intake: Oral 240 900 Output: Urine 120 Other: # Voids 4 # Bowel Movements 0 Active Medications: Current Medications Acetaminophen (Tylenol) 650 mg PO Q4HR PRN PRN Reason: Mild Pain / Temp above 100 Stop: 05/04/19 04:51 Acetaminophen/Hydrocodone Bitart ([place] 10 Mg/325 Mg) 1 tab PO Q6HR PRN PRN Reason: moderate pain Stop: 05/04/19 06:52 Al Hydrox/Mg Hydrox/Simethicone (Maalox) 30 ml PO Q4HR PRN PRN Reason: GI DISTRESS Stop: 05/04/19 04:51 Carbidopa/Levodopa (Sinemet 25 Mg-250 Mg) 1 tab PO QID [facility] Stop: 05/04/19 08:59 Last Admin: 03/15/19 17:00 Dose: 1 tab Cholecalciferol (Vitamin D3) 2,000 iu PO DAILY [facility] Stop: 05/04/19 08:59 Last Admin: 03/15/19 09:00 Dose: 2,000 iu Fluoxetine HCl (Prozac) 20 mg PO DAILY [facility]; Protocol Stop: 05/04/19 08:59 Last Admin: 03/15/19 09:13 Dose: 20 mg Gabapentin (Neurontin) 300 mg PO TID [facility] Stop: 05/04/19 08:59 Last Admin: 03/15/19 13:27 Dose: 300 mg Haloperidol Lactate (Haldol Concentrate 10mg/5ml Susp) 5 mg PO Q6HR PRN; Protocol PRN Reason: Agitation Stop: 05/04/19 05:59 Last Admin: 03/06/19 08:42 Dose: 5 mg Lorazepam (Ativan) 0.5 mg PO Q4HR PRN; Protocol PRN Reason: Anxiety Stop: 04/04/19 04:51 Last Admin: 03/12/19 16:38 Dose: 0.5 mg Magnesium Hydroxide (Milk Of Magnesia) 30 ml PO HS PRN PRN Reason: Constipation Memantine (Namenda) 5 mg PO DAILY [facility] Stop: 05/05/19 08:59 Last Admin: 03/15/19 09:13 Dose: 5 mg Multivitamins/Vitamin C (Theragran) 1 tab PO DAILY [facility] Stop: 05/04/19 08:59 Last Admin: 03/15/19 09:10 Dose: 1 tab Nystatin (Nystop) 0 units TP BID [facility] Stop: 05/09/19 16:59 Last Admin: 03/15/19 17:00 Dose: 10,000 units Pantoprazole Sodium (Protonix) 40 mg PO QDAC [facility] Stop: 05/04/19 07:59 Last Admin: 03/15/19 06:40 Dose: Not Given Pramipexole Dihydrochloride (Mirapex) 0.5 mg PO TID [facility]; Protocol Stop: 05/04/19 08:59 Last Admin: 03/15/19 13:39 Dose: 0.5 mg Risperidone (Risperdal) 0.5 mg PO BID [facility]; Protocol Stop: 05/05/19 16:59 Last Admin: 03/15/19 17:00 Dose: 0.5 mg Tizanidine HCl (Zanaflex) 4 mg PO TID [facility] Stop: 05/04/19 08:59 Last Admin: 03/15/19 13:28 Dose: 4 mg Zolpidem Tartrate (Ambien) 5 mg PO HS PRN PRN Reason: Insomnia Stop: 05/04/19 04:51 Last Admin: 03/14/19 20:57 Dose: 5 mg General: No acute distress HEENT: Atraumatic Neck: Supple Cardiovascular: Regular rate, Normal S1, Normal S2 Abdomen: Bowel sounds, Soft Assessment/Plan - Assessment Assessment: 1.DJD. 2.CONSTIPATION. 3.DEMENTIA - Plan Plan: continue current treatment Nutritional Asmnt/Malnutr-PDOC - Dietary Evaluation Malnutrition Findings (Please click <Entered> for more info): Nutritional Asmnt/Malnutrition Start: 03/08/19 08: 25 Text: Status: Complete Freq: Protocol: Document 03/08/19 08:27 ALO (Rec: 03/08/19 08:52 ALO RYDER- [email or web address]) Nutritional Asmnt/Malnutrition Patient General Information Nutritional Screening Moderate Risk Diagnosis Psychosis Pertinent Medical Hx/Surgical Hx Parkinson's disease, degernerative joint disease, dementia Subjective Information Admitted from [facility]. Patient not in room at time of visit. Current Diet Order/ Nutrition Support Pureed Patient / S.O Not Indicated Pertinent Medications maalox, vitamin D, MOM, Theragran, protonix Pertinent Labs (03/05) Albumin 3.2, BNP 128 Nutritional Hx/Data Height 1.75 m Height (Calculated Centimeters) 175.3 Current Weight (lbs) 83.007 kg Weight (Calculated Kilograms) 83.0 Weight (Calculated Grams) 01638.4 [place] Body Weight 160 % [place] Body Weight 114 Body Mass Index (BMI) 27.0 Recent Weight Change No Weight Status Overweight GI Symptoms GI Symptoms None Last BM 03/06 x 1 Difficult in: None Food Allergies No Cultural/Ethnic/Evangelical Belief none indicated Usual diet at home unknown Skin Integrity/Comment: [place] 18, abrasion on both knees, wound Current %PO Good (75-100%) Estimated Nutritional Goals BEE in Kcals: Using Current wt Calories/Kcals/Kg using CBW 83kg Kcals Calculated 6047-8318 kcal/day (22-27kcal/ kg) Protein: Using Current wt Protein g/k.8-1 gm/kg Protein Calculated ~65-85 gm/day Fluid: ml 8833-8616 ml/day Nutritional Problem 1. Problem Problem No nutrition related diagnosis Intervention/Recommendation Comments 1. Continue pureed diet as tolerated by patient. Expected Outcomes/Goals Expected Outcomes/Goals Oral intake >75% of meals, weight stable, nutrition related labs WNL F/U LR 03/15
[2019-03-16] MEDS: Pantoprazole 40 mg EC Tab PO SCH (06:57)
[2019-03-16] MEDS: Multivitamin Tab PO SCH (08:55)
[2019-03-16] MEDS: NYSTATIN 100000 UNITS/GM POWD TP SCH ×2 (09:04→16:47)
--- NOTE | 2019-03-16 16:20 | General Progress Note ---
Subjective - Review of Systems Service Date: 03/16/19 Subjective: resting comfortably no distress Objective - Results Result Diagrams: 03/05/19 02:40 03/05/19 02:40 Recent Labs: Laboratory Last Values WBC 6.1 Th/cmm (4.8-10.8) 03/05/19 02:40 RBC 4.48 Mil/cmm (3.80-5.80) 03/05/19 02:40 Hgb 13.5 gm/dL (12-16) 03/05/19 02:40 Hct 40.9 % (41.0-60) L 03/05/19 02:40 MCV 91.2 fl (80-99) 03/05/19 02:40 MCH 30.2 pg (27.0-31.0) 03/05/19 02:40 MCHC Differential 33.1 pg (28.0-36.0) 03/05/19 02:40 RDW 13.7 % (11.5-20.0) 03/05/19 02:40 Plt Count 247 Th/cmm (150-400) 03/05/19 02:40 MPV 7.7 fl 03/05/19 02:40 Neutrophils % 80.5 % (40.0-80.0) H 03/05/19 02:40 Lymphocytes % 11.6 % (20.0-50.0) L 03/05/19 02:40 Monocytes % 4.0 % (2.0-10.0) 03/05/19 02:40 Eosinophils % 3.1 % (0.0-5.0) 03/05/19 02:40 Basophils % 0.8 % (0.0-2.0) 03/05/19 02:40 Sodium 140 mEq/L (136-145) 03/05/19 02:40 Potassium 3.5 mEq/L (3.5-5.1) 03/05/19 02:40 Chloride 105 mEq/L (98-107) 03/05/19 02:40 Carbon Dioxide 24.4 mEq/L (21.0-31.0) 03/05/19 02:40 Anion Gap 14.1 (7.0-16.0) 03/05/19 02:40 BUN 14 mg/dL (7-25) 03/05/19 02:40 Creatinine 0.7 mg/dL (0.7-1.3) 03/05/19 02:40 Est GFR ( Amer) TNP 03/05/19 02:40 Est GFR (Non-Af Amer) TNP 03/05/19 02:40 BUN/Creatinine Ratio 20.0 03/05/19 02:40 Glucose 95 mg/dL (70-105) 03/05/19 02:40 Calcium 8.9 mg/dL (8.6-10.3) 03/05/19 02:40 Total Bilirubin 0.8 mg/dL (0.3-1.0) 03/05/19 02:40 AST 23 U/L (13-39) 03/05/19 02:40 ALT 15 U/L (7-52) 03/05/19 02:40 Alkaline Phosphatase 46 U/L (34-104) 03/05/19 02:40 Troponin I 0.02 ng/mL (0.01-0.05) 03/05/19 02:40 B-Natriuretic Peptide 128.0 pg/mL (5.0-100.0) H 03/05/19 02:40 Total Protein 6.2 gm/dL (6.0-8.3) 03/05/19 02:40 Albumin 3.2 gm/dL (4.2-5.5) L 03/05/19 02:40 Globulin 3.0 gm/dL 03/05/19 02:40 Albumin/Globulin Ratio 1.1 (1.0-1.8) 03/05/19 02:40 Triglycerides 98 mg/dL (<150) 03/05/19 02:40 Cholesterol 153 mg/dL (<200) 03/05/19 02:40 LDL Cholesterol Direct 100 mg/dL (75-193) 03/05/19 02:40 HDL Cholesterol 41 mg/dL (23-92) 03/05/19 02:40 TSH 2.77 uIU/ml (0.34-5.60) 03/05/19 02:40 - Physical Exam Vitals and I&O: Vital Signs Temp 97.1 F 03/16/19 14:00 Pulse 90 03/16/19 14:00 Resp 20 03/16/19 14:00 BP 128/77 03/16/19 14:00 Pulse Ox 98 03/16/19 14:00 Intake & Output 03/15/19 03/16/19 03/16/19 18:59 06:59 18:59 Intake Total 900 120 Balance 900 120 Intake: Oral 900 120 Other: # Voids 4 2 # Bowel Movements 0 0 Active Medications: Current Medications Acetaminophen (Tylenol) 650 mg PO Q4HR PRN PRN Reason: Mild Pain / Temp above 100 Stop: 05/04/19 04:51 Acetaminophen/Hydrocodone Bitart ([place] 10 Mg/325 Mg) 1 tab PO Q6HR PRN PRN Reason: moderate pain Stop: 05/04/19 06:52 Last Admin: 03/16/19 06:56 Dose: 1 tab Al Hydrox/Mg Hydrox/Simethicone (Maalox) 30 ml PO Q4HR PRN PRN Reason: GI DISTRESS Stop: 05/04/19 04:51 Carbidopa/Levodopa (Sinemet 25 Mg-250 Mg) 1 tab PO QID [facility] Stop: 05/04/19 08:59 Last Admin: 03/16/19 12:03 Dose: 1 tab Cholecalciferol (Vitamin D3) 2,000 iu PO DAILY [facility] Stop: 05/04/19 08:59 Last Admin: 03/16/19 08:56 Dose: 2,000 iu Fluoxetine HCl (Prozac) 20 mg PO DAILY [facility]; Protocol Stop: 05/04/19 08:59 Last Admin: 03/16/19 08:55 Dose: 20 mg Gabapentin (Neurontin) 300 mg PO TID [facility] Stop: 05/04/19 08:59 Last Admin: 03/16/19 13:38 Dose: 300 mg Haloperidol Lactate (Haldol Concentrate 10mg/5ml Susp) 5 mg PO Q6HR PRN; Protocol PRN Reason: Agitation Stop: 05/04/19 05:59 Last Admin: 03/06/19 08:42 Dose: 5 mg Lorazepam (Ativan) 0.5 mg PO Q4HR PRN; Protocol PRN Reason: Anxiety Stop: 04/04/19 04:51 Last Admin: 03/16/19 08:56 Dose: 0.5 mg Magnesium Hydroxide (Milk Of Magnesia) 30 ml PO HS PRN PRN Reason: Constipation Memantine (Namenda) 5 mg PO DAILY [facility] Stop: 05/05/19 08:59 Last Admin: 03/16/19 08:56 Dose: 5 mg Multivitamins/Vitamin C (Theragran) 1 tab PO DAILY [facility] Stop: 05/04/19 08:59 Last Admin: 03/16/19 08:55 Dose: 1 tab Nystatin (Nystop) 0 units TP BID [facility] Stop: 05/09/19 16:59 Last Admin: 03/16/19 09:04 Dose: 100,000 units Pantoprazole Sodium (Protonix) 40 mg PO QDAC [facility] Stop: 05/04/19 07:59 Last Admin: 03/16/19 06:57 Dose: 40 mg Pramipexole Dihydrochloride (Mirapex) 0.5 mg PO TID [facility]; Protocol Stop: 05/04/19 08:59 Last Admin: 03/16/19 14:00 Dose: 0.5 mg Risperidone (Risperdal) 0.5 mg PO BID [facility]; Protocol Stop: 05/05/19 16:59 Last Admin: 03/16/19 08:56 Dose: 0.5 mg Tizanidine HCl (Zanaflex) 4 mg PO TID [facility] Stop: 05/04/19 08:59 Last Admin: 03/16/19 13:37 Dose: 4 mg Zolpidem Tartrate (Ambien) 5 mg PO HS PRN PRN Reason: Insomnia Stop: 05/04/19 04:51 Last Admin: 03/14/19 20:57 Dose: 5 mg General: No acute distress HEENT: Atraumatic Neck: Supple Cardiovascular: Regular rate, Normal S1, Normal S2 Abdomen: Bowel sounds, Soft Assessment/Plan - Assessment Assessment: 1.DJD. 2.CONSTIPATION. 3.DEMENTIA - Plan Plan: continue current treatment Nutritional Asmnt/Malnutr-PDOC - Dietary Evaluation Malnutrition Findings (Please click <Entered> for more info): Nutritional Asmnt/Malnutrition Start: 03/08/19 08: 25 Text: Status: Complete Freq: Protocol: Document 03/08/19 08:27 ALO (Rec: 03/08/19 08:52 ALO RYDER- [email or web address]) Nutritional Asmnt/Malnutrition Patient General Information Nutritional Screening Moderate Risk Diagnosis Psychosis Pertinent Medical Hx/Surgical Hx Parkinson's disease, degernerative joint disease, dementia Subjective Information Admitted from [facility]. Patient not in room at time of visit. Current Diet Order/ Nutrition Support Pureed Patient / S.O Not Indicated Pertinent Medications maalox, vitamin D, MOM, Theragran, protonix Pertinent Labs (03/05) Albumin 3.2, BNP 128 Nutritional Hx/Data Height 1.75 m Height (Calculated Centimeters) 175.3 Current Weight (lbs) 83.007 kg Weight (Calculated Kilograms) 83.0 Weight (Calculated Grams) 51126.4 [place] Body Weight 160 % [place] Body Weight 114 Body Mass Index (BMI) 27.0 Recent Weight Change No Weight Status Overweight GI Symptoms GI Symptoms None Last BM 03/06 x 1 Difficult in: None Food Allergies No Cultural/Ethnic/Caodaism Belief none indicated Usual diet at home unknown Skin Integrity/Comment: [place] 18, abrasion on both knees, wound Current %PO Good (75-100%) Estimated Nutritional Goals BEE in Kcals: Using Current wt Calories/Kcals/Kg using CBW 83kg Kcals Calculated 2356-3516 kcal/day (22-27kcal/ kg) Protein: Using Current wt Protein g/k.8-1 gm/kg Protein Calculated ~65-85 gm/day Fluid: ml 3989-1019 ml/day Nutritional Problem 1. Problem Problem No nutrition related diagnosis Intervention/Recommendation Comments 1. Continue pureed diet as tolerated by patient. Expected Outcomes/Goals Expected Outcomes/Goals Oral intake >75% of meals, weight stable, nutrition related labs WNL F/U LR 03/15
--- NOTE | 2019-03-16 20:05 | Progress Notes ---
DATE: 03/16/2019 SUBJECTIVE: The patient is confused, disoriented, was unruly last night, very aggressive last night, still very impulsive, unpredictable. He actually refused medications last night. On gqfk-qb-noon, the patient is confused, disoriented, ongoing concerns about his ability to care for himself and function at a lower level of care given how agitated he can become. PLAN: We will continue to monitor. Consider adding Depakote to his regimen if behaviors continue. [facility]# [id number]
[2019-03-17] MEDS: Pantoprazole 40 mg EC Tab PO SCH ×2 (06:34→06:41)
[2019-03-17] MEDS: Multivitamin Tab PO SCH (08:40)
[2019-03-17] MEDS: NYSTATIN 100000 UNITS/GM POWD TP SCH ×2 (08:41→17:15)
--- NOTE | 2019-03-17 19:54 | Internal Medicine Prog Note ---
Internal Medicine Subjective - Subjective Service Date: 03/17/19 Patient seen and examined:: without staff (HE FEELS BETTER) Patient is:: awake, verbal, talking, confused Per staff patient has:: no adverse event Internal Medicine Objective - Results Result Diagrams: 03/05/19 02:40 03/05/19 02:40 Recent Labs: Laboratory Last Values WBC 6.1 Th/cmm (4.8-10.8) 03/05/19 02:40 RBC 4.48 Mil/cmm (3.80-5.80) 03/05/19 02:40 Hgb 13.5 gm/dL (12-16) 03/05/19 02:40 Hct 40.9 % (41.0-60) L 03/05/19 02:40 MCV 91.2 fl (80-99) 03/05/19 02:40 MCH 30.2 pg (27.0-31.0) 03/05/19 02:40 MCHC Differential 33.1 pg (28.0-36.0) 03/05/19 02:40 RDW 13.7 % (11.5-20.0) 03/05/19 02:40 Plt Count 247 Th/cmm (150-400) 03/05/19 02:40 MPV 7.7 fl 03/05/19 02:40 Neutrophils % 80.5 % (40.0-80.0) H 03/05/19 02:40 Lymphocytes % 11.6 % (20.0-50.0) L 03/05/19 02:40 Monocytes % 4.0 % (2.0-10.0) 03/05/19 02:40 Eosinophils % 3.1 % (0.0-5.0) 03/05/19 02:40 Basophils % 0.8 % (0.0-2.0) 03/05/19 02:40 Sodium 140 mEq/L (136-145) 03/05/19 02:40 Potassium 3.5 mEq/L (3.5-5.1) 03/05/19 02:40 Chloride 105 mEq/L (98-107) 03/05/19 02:40 Carbon Dioxide 24.4 mEq/L (21.0-31.0) 03/05/19 02:40 Anion Gap 14.1 (7.0-16.0) 03/05/19 02:40 BUN 14 mg/dL (7-25) 03/05/19 02:40 Creatinine 0.7 mg/dL (0.7-1.3) 03/05/19 02:40 Est GFR ( Amer) TNP 03/05/19 02:40 Est GFR (Non-Af Amer) TNP 03/05/19 02:40 BUN/Creatinine Ratio 20.0 03/05/19 02:40 Glucose 95 mg/dL (70-105) 03/05/19 02:40 Calcium 8.9 mg/dL (8.6-10.3) 03/05/19 02:40 Total Bilirubin 0.8 mg/dL (0.3-1.0) 03/05/19 02:40 AST 23 U/L (13-39) 03/05/19 02:40 ALT 15 U/L (7-52) 03/05/19 02:40 Alkaline Phosphatase 46 U/L (34-104) 03/05/19 02:40 Troponin I 0.02 ng/mL (0.01-0.05) 03/05/19 02:40 B-Natriuretic Peptide 128.0 pg/mL (5.0-100.0) H 03/05/19 02:40 Total Protein 6.2 gm/dL (6.0-8.3) 03/05/19 02:40 Albumin 3.2 gm/dL (4.2-5.5) L 03/05/19 02:40 Globulin 3.0 gm/dL 03/05/19 02:40 Albumin/Globulin Ratio 1.1 (1.0-1.8) 03/05/19 02:40 Triglycerides 98 mg/dL (<150) 03/05/19 02:40 Cholesterol 153 mg/dL (<200) 03/05/19 02:40 LDL Cholesterol Direct 100 mg/dL (75-193) 03/05/19 02:40 HDL Cholesterol 41 mg/dL (23-92) 03/05/19 02:40 TSH 2.77 uIU/ml (0.34-5.60) 03/05/19 02:40 - Physical Exam Vitals and I&O: Vital Signs Temp 97.8 F 03/17/19 19:44 Pulse 82 03/17/19 19:44 Resp 20 03/17/19 19:44 BP 126/71 03/17/19 19:44 Pulse Ox 91 03/17/19 19:44 Intake & Output 03/17/19 03/17/19 03/18/19 06:59 18:59 06:59 Intake Total 240 120 120 Balance 240 120 120 Intake: Oral 240 120 120 Other: # Voids 1 2 3 # Bowel Movements 0 0 Active Medications: Current Medications Acetaminophen (Tylenol) 650 mg PO Q4HR PRN PRN Reason: Mild Pain / Temp above 100 Stop: 05/04/19 04:51 Acetaminophen/Hydrocodone Bitart ([place] 10 Mg/325 Mg) 1 tab PO Q6HR PRN PRN Reason: moderate pain Stop: 05/04/19 06:52 Last Admin: 03/16/19 06:56 Dose: 1 tab Al Hydrox/Mg Hydrox/Simethicone (Maalox) 30 ml PO Q4HR PRN PRN Reason: GI DISTRESS Stop: 05/04/19 04:51 Carbidopa/Levodopa (Sinemet 25 Mg-250 Mg) 1 tab PO QID [facility] Stop: 05/04/19 08:59 Last Admin: 03/17/19 17:15 Dose: 1 tab Cholecalciferol (Vitamin D3) 2,000 iu PO DAILY [facility] Stop: 05/04/19 08:59 Last Admin: 03/17/19 08:39 Dose: 2,000 iu Divalproex Sodium (Depakote Dr) 250 mg PO BID [facility]; Protocol Stop: 05/16/19 16:59 Fluoxetine HCl (Prozac) 20 mg PO DAILY [facility]; Protocol Stop: 05/04/19 08:59 Last Admin: 03/17/19 08:39 Dose: 20 mg Gabapentin (Neurontin) 300 mg PO TID [facility] Stop: 05/04/19 08:59 Last Admin: 03/17/19 13:44 Dose: 300 mg Haloperidol Lactate (Haldol Concentrate 10mg/5ml Susp) 5 mg PO Q6HR PRN; Protocol PRN Reason: Agitation Stop: 05/04/19 05:59 Last Admin: 03/06/19 08:42 Dose: 5 mg Lorazepam (Ativan) 0.5 mg PO Q4HR PRN; Protocol PRN Reason: Anxiety Stop: 04/04/19 04:51 Last Admin: 03/16/19 08:56 Dose: 0.5 mg Magnesium Hydroxide (Milk Of Magnesia) 30 ml PO HS PRN PRN Reason: Constipation Memantine (Namenda) 5 mg PO DAILY [facility] Stop: 05/05/19 08:59 Last Admin: 03/17/19 08:39 Dose: 5 mg Multivitamins/Vitamin C (Theragran) 1 tab PO DAILY [facility] Stop: 05/04/19 08:59 Last Admin: 03/17/19 08:40 Dose: 1 tab Nystatin (Nystop) 0 units TP BID [facility] Stop: 05/09/19 16:59 Last Admin: 03/17/19 17:15 Dose: 100,000 units Pantoprazole Sodium (Protonix) 40 mg PO QDAC [facility] Stop: 05/04/19 07:59 Last Admin: 03/17/19 06:41 Dose: Not Given Pramipexole Dihydrochloride (Mirapex) 0.5 mg PO TID [facility]; Protocol Stop: 05/04/19 08:59 Last Admin: 03/17/19 13:44 Dose: 0.5 mg Tizanidine HCl (Zanaflex) 4 mg PO TID [facility] Stop: 05/04/19 08:59 Last Admin: 03/17/19 13:44 Dose: 4 mg Zolpidem Tartrate (Ambien) 5 mg PO HS PRN PRN Reason: Insomnia Stop: 05/04/19 04:51 Last Admin: 03/16/19 20:23 Dose: 5 mg General: demented HEENT: NC/AT, PERRLA, EOMI, anicteric sclerae, throat clear Neck: Supple, No JVD, No thyromegaly, +2 carotid pulse wo bruit, No LAD, + JVD Lungs: CTAB Cardiovascular: RRR, Normal S1, Normal S2, without murmur Abdomen: soft, non-tender, non-distended Neurological: no change Internal Medicine Assmt/Plan - Assessment Assessment: 1.DJD. 2.CONSTIPATION. 3.DEMENTIA - Plan Plan: CONTINUE ON CURRENT MEDICATION AND DIET. Nutritional Asmnt/Malnutr-PDOC - Dietary Evaluation Malnutrition Findings (Please click <Entered> for more info): Nutritional Asmnt/Malnutrition Start: 03/08/19 08: 25 Text: Status: Complete Freq: Protocol: Document 03/08/19 08:27 ALO (Rec: 03/08/19 08:52 ALO [email or web address]- [email or web address]) Nutritional Asmnt/Malnutrition Patient General Information Nutritional Screening Moderate Risk Diagnosis Psychosis Pertinent Medical Hx/Surgical Hx Parkinson's disease, degernerative joint disease, dementia Subjective Information Admitted from [facility]. Patient not in room at time of visit. Current Diet Order/ Nutrition Support Pureed Patient / S.O Not Indicated Pertinent Medications maalox, vitamin D, MOM, Theragran, protonix Pertinent Labs (03/05) Albumin 3.2, BNP 128 Nutritional Hx/Data Height 1.75 m Height (Calculated Centimeters) 175.3 Current Weight (lbs) 83.007 kg Weight (Calculated Kilograms) 83.0 Weight (Calculated Grams) 47017.4 [place] Body Weight 160 % [place] Body Weight 114 Body Mass Index (BMI) 27.0 Recent Weight Change No Weight Status Overweight GI Symptoms GI Symptoms None Last BM 03/06 x 1 Difficult in: None Food Allergies No Cultural/Ethnic/Moravian Belief none indicated Usual diet at home unknown Skin Integrity/Comment: [place] 18, abrasion on both knees, wound Current %PO Good (75-100%) Estimated Nutritional Goals BEE in Kcals: Using Current wt Calories/Kcals/Kg using CBW 83kg Kcals Calculated 6408-7977 kcal/day (22-27kcal/ kg) Protein: Using Current wt Protein g/k.8-1 gm/kg Protein Calculated ~65-85 gm/day Fluid: ml 3824-7168 ml/day Nutritional Problem 1. Problem Problem No nutrition related diagnosis Intervention/Recommendation Comments 1. Continue pureed diet as tolerated by patient. Expected Outcomes/Goals Expected Outcomes/Goals Oral intake >75% of meals, weight stable, nutrition related labs WNL F/U LR 03/15
[2019-03-18] MEDS: Pantoprazole 40 mg EC Tab PO SCH (06:34)
--- NOTE | 2019-03-18 07:10 | Progress Notes ---
DATE: 03/17/2019 The patient remains aggressive, agitated, unpredictable, targeting female nursing staff, unruly, very impulsive, and unpredictable. The patient with ongoing confusion and ongoing behavioral disturbances. ASSESSMENT: The patient remains symptomatic, still remains very impulsive, unpredictable. PLAN: At this time, I am considering starting him on Depakote. I am concerned about the patient's ongoing behavioral disturbances. We will adjust medications. Fair sleep, fair appetite, needing a lot of prompting and redirection. JOB# [id number]
[2019-03-18] MEDS: Multivitamin Tab PO SCH (08:34)
--- NOTE | 2019-03-18 21:16 | Internal Medicine Prog Note ---
Internal Medicine Subjective - Subjective Service Date: 03/18/19 Patient seen and examined:: with staff (HE FEELS WELL) Patient is:: awake, verbal, talking, confused Per staff patient has:: no adverse event Internal Medicine Objective - Results Result Diagrams: 03/05/19 02:40 03/05/19 02:40 Recent Labs: Laboratory Last Values WBC 6.1 Th/cmm (4.8-10.8) 03/05/19 02:40 RBC 4.48 Mil/cmm (3.80-5.80) 03/05/19 02:40 Hgb 13.5 gm/dL (12-16) 03/05/19 02:40 Hct 40.9 % (41.0-60) L 03/05/19 02:40 MCV 91.2 fl (80-99) 03/05/19 02:40 MCH 30.2 pg (27.0-31.0) 03/05/19 02:40 MCHC Differential 33.1 pg (28.0-36.0) 03/05/19 02:40 RDW 13.7 % (11.5-20.0) 03/05/19 02:40 Plt Count 247 Th/cmm (150-400) 03/05/19 02:40 MPV 7.7 fl 03/05/19 02:40 Neutrophils % 80.5 % (40.0-80.0) H 03/05/19 02:40 Lymphocytes % 11.6 % (20.0-50.0) L 03/05/19 02:40 Monocytes % 4.0 % (2.0-10.0) 03/05/19 02:40 Eosinophils % 3.1 % (0.0-5.0) 03/05/19 02:40 Basophils % 0.8 % (0.0-2.0) 03/05/19 02:40 Sodium 140 mEq/L (136-145) 03/05/19 02:40 Potassium 3.5 mEq/L (3.5-5.1) 03/05/19 02:40 Chloride 105 mEq/L (98-107) 03/05/19 02:40 Carbon Dioxide 24.4 mEq/L (21.0-31.0) 03/05/19 02:40 Anion Gap 14.1 (7.0-16.0) 03/05/19 02:40 BUN 14 mg/dL (7-25) 03/05/19 02:40 Creatinine 0.7 mg/dL (0.7-1.3) 03/05/19 02:40 Est GFR ( Amer) TNP 03/05/19 02:40 Est GFR (Non-Af Amer) TNP 03/05/19 02:40 BUN/Creatinine Ratio 20.0 03/05/19 02:40 Glucose 95 mg/dL (70-105) 03/05/19 02:40 Calcium 8.9 mg/dL (8.6-10.3) 03/05/19 02:40 Total Bilirubin 0.8 mg/dL (0.3-1.0) 03/05/19 02:40 AST 23 U/L (13-39) 03/05/19 02:40 ALT 15 U/L (7-52) 03/05/19 02:40 Alkaline Phosphatase 46 U/L (34-104) 03/05/19 02:40 Troponin I 0.02 ng/mL (0.01-0.05) 03/05/19 02:40 B-Natriuretic Peptide 128.0 pg/mL (5.0-100.0) H 03/05/19 02:40 Total Protein 6.2 gm/dL (6.0-8.3) 03/05/19 02:40 Albumin 3.2 gm/dL (4.2-5.5) L 03/05/19 02:40 Globulin 3.0 gm/dL 03/05/19 02:40 Albumin/Globulin Ratio 1.1 (1.0-1.8) 03/05/19 02:40 Triglycerides 98 mg/dL (<150) 03/05/19 02:40 Cholesterol 153 mg/dL (<200) 03/05/19 02:40 LDL Cholesterol Direct 100 mg/dL (75-193) 03/05/19 02:40 HDL Cholesterol 41 mg/dL (23-92) 03/05/19 02:40 TSH 2.77 uIU/ml (0.34-5.60) 03/05/19 02:40 - Physical Exam Vitals and I&O: Vital Signs Temp 98.6 F 03/18/19 20:00 Pulse 115 03/18/19 20:00 Resp 18 03/18/19 20:00 BP 125/70 03/18/19 20:00 Pulse Ox 95 03/18/19 20:00 Intake & Output 03/18/19 03/18/19 03/19/19 06:59 18:59 06:59 Intake Total 120 800 Balance 120 800 Intake: Oral 120 800 Other: # Voids 3 3 # Bowel Movements 1 0 Active Medications: Current Medications Acetaminophen (Tylenol) 650 mg PO Q4HR PRN PRN Reason: Mild Pain / Temp above 100 Stop: 05/04/19 04:51 Acetaminophen/Hydrocodone Bitart ([place] 10 Mg/325 Mg) 1 tab PO Q6HR PRN PRN Reason: moderate pain Stop: 05/04/19 06:52 Last Admin: 03/16/19 06:56 Dose: 1 tab Al Hydrox/Mg Hydrox/Simethicone (Maalox) 30 ml PO Q4HR PRN PRN Reason: GI DISTRESS Stop: 05/04/19 04:51 Carbidopa/Levodopa (Sinemet 25 Mg-250 Mg) 1 tab PO QID [facility] Stop: 05/04/19 08:59 Last Admin: 03/18/19 20:18 Dose: 1 tab Cholecalciferol (Vitamin D3) 2,000 iu PO DAILY [facility] Stop: 05/04/19 08:59 Last Admin: 03/18/19 08:33 Dose: 2,000 iu Divalproex Sodium (Depakote Dr) 250 mg PO BID [facility]; Protocol Stop: 05/17/19 08:59 Last Admin: 03/18/19 17:18 Dose: 250 mg Fluoxetine HCl (Prozac) 20 mg PO DAILY [facility]; Protocol Stop: 05/04/19 08:59 Last Admin: 03/18/19 08:35 Dose: 20 mg Gabapentin (Neurontin) 300 mg PO TID [facility] Stop: 05/04/19 08:59 Last Admin: 03/18/19 20:18 Dose: 300 mg Haloperidol Lactate (Haldol Concentrate 10mg/5ml Susp) 5 mg PO Q6HR PRN; Protocol PRN Reason: Agitation Stop: 05/04/19 05:59 Last Admin: 03/06/19 08:42 Dose: 5 mg Lorazepam (Ativan) 0.5 mg PO Q4HR PRN; Protocol PRN Reason: Anxiety Stop: 04/04/19 04:51 Last Admin: 03/18/19 08:35 Dose: 0.5 mg Magnesium Hydroxide (Milk Of Magnesia) 30 ml PO HS PRN PRN Reason: Constipation Memantine (Namenda) 5 mg PO DAILY [facility] Stop: 05/05/19 08:59 Last Admin: 03/18/19 08:34 Dose: 5 mg Multivitamins/Vitamin C (Theragran) 1 tab PO DAILY [facility] Stop: 05/04/19 08:59 Last Admin: 03/18/19 08:34 Dose: 1 tab Pantoprazole Sodium (Protonix) 40 mg PO QDAC [facility] Stop: 05/04/19 07:59 Last Admin: 03/18/19 06:34 Dose: 40 mg Pramipexole Dihydrochloride (Mirapex) 0.5 mg PO TID [facility]; Protocol Stop: 05/04/19 08:59 Last Admin: 03/18/19 20:18 Dose: 0.5 mg Tizanidine HCl (Zanaflex) 4 mg PO TID [facility] Stop: 05/04/19 08:59 Last Admin: 03/18/19 20:19 Dose: 4 mg Zolpidem Tartrate (Ambien) 5 mg PO HS PRN PRN Reason: Insomnia Stop: 05/04/19 04:51 Last Admin: 03/16/19 20:23 Dose: 5 mg General: demented HEENT: NC/AT, PERRLA, EOMI, anicteric sclerae, throat clear Neck: Supple, No JVD, No thyromegaly, +2 carotid pulse wo bruit, No LAD, + JVD Lungs: CTAB Cardiovascular: RRR, Normal S1, Normal S2, without murmur Abdomen: soft, non-tender, non-distended Neurological: no change Internal Medicine Assmt/Plan - Assessment Assessment: 1.DJD. 2.CONSTIPATION. 3.DEMENTIA - Plan Plan: CONTINUE ON CURRENT MEDICATION AND DIET. Nutritional Asmnt/Malnutr-PDOC - Dietary Evaluation Malnutrition Findings (Please click <Entered> for more info): Nutritional Asmnt/Malnutrition Start: 03/08/19 08: 25 Text: Status: Complete Freq: Protocol: Document 03/08/19 08:27 [email or web address] (Rec: 03/08/19 08:52 MMANANYA RYDER- [email or web address]) Nutritional Asmnt/Malnutrition Patient General Information Nutritional Screening Moderate Risk Diagnosis Psychosis Pertinent Medical Hx/Surgical Hx Parkinson's disease, degernerative joint disease, dementia Subjective Information Admitted from [facility]. Patient not in room at time of visit. Current Diet Order/ Nutrition Support Pureed Patient / S.O Not Indicated Pertinent Medications maalox, vitamin D, MOM, Theragran, protonix Pertinent Labs (03/05) Albumin 3.2, BNP 128 Nutritional Hx/Data Height 1.75 m Height (Calculated Centimeters) 175.3 Current Weight (lbs) 83.007 kg Weight (Calculated Kilograms) 83.0 Weight (Calculated Grams) 90531.4 [place] Body Weight 160 % [place] Body Weight 114 Body Mass Index (BMI) 27.0 Recent Weight Change No Weight Status Overweight GI Symptoms GI Symptoms None Last BM 03/06 x 1 Difficult in: None Food Allergies No Cultural/Ethnic/Restorationism Belief none indicated Usual diet at home unknown Skin Integrity/Comment: [place] 18, abrasion on both knees, wound Current %PO Good (75-100%) Estimated Nutritional Goals BEE in Kcals: Using Current wt Calories/Kcals/Kg using CBW 83kg Kcals Calculated 1759-3740 kcal/day (22-27kcal/ kg) Protein: Using Current wt Protein g/k.8-1 gm/kg Protein Calculated ~65-85 gm/day Fluid: ml 4553-9318 ml/day Nutritional Problem 1. Problem Problem No nutrition related diagnosis Intervention/Recommendation Comments 1. Continue pureed diet as tolerated by patient. Expected Outcomes/Goals Expected Outcomes/Goals Oral intake >75% of meals, weight stable, nutrition related labs WNL F/U LR 03/15
[2019-03-19] MEDS: Pantoprazole 40 mg EC Tab PO SCH (06:30)
[2019-03-19] MEDS: Multivitamin Tab PO SCH (08:41)
--- NOTE | 2019-03-19 10:42 | Progress Notes ---
DATE: 03/18/2019 SUBJECTIVE: The patient is currently confused, disoriented and trying to climb out of bed, hard to redirect, still can become agitated, aggressive, impulsive, unpredictable, remains forgetful, fair sleep, fair appetite, still on a Lala chair, requiring a higher level of prompting, redirection. Recent initiation of Depakote. ASSESSMENT: The patient remains unruly, highly impulsive, unpredictable. PLAN: We will continue to monitor. Consider dose increase of Depakote. [facility]# [id number]
--- NOTE | 2019-03-19 22:01 | Internal Medicine Prog Note ---
Internal Medicine Subjective - Subjective Service Date: 03/19/19 Patient seen and examined:: without staff Patient is:: awake, verbal, talking, confused Per staff patient has:: no adverse event Internal Medicine Objective - Results Result Diagrams: 03/05/19 02:40 03/05/19 02:40 Recent Labs: Laboratory Last Values WBC 6.1 Th/cmm (4.8-10.8) 03/05/19 02:40 RBC 4.48 Mil/cmm (3.80-5.80) 03/05/19 02:40 Hgb 13.5 gm/dL (12-16) 03/05/19 02:40 Hct 40.9 % (41.0-60) L 03/05/19 02:40 MCV 91.2 fl (80-99) 03/05/19 02:40 MCH 30.2 pg (27.0-31.0) 03/05/19 02:40 MCHC Differential 33.1 pg (28.0-36.0) 03/05/19 02:40 RDW 13.7 % (11.5-20.0) 03/05/19 02:40 Plt Count 247 Th/cmm (150-400) 03/05/19 02:40 MPV 7.7 fl 03/05/19 02:40 Neutrophils % 80.5 % (40.0-80.0) H 03/05/19 02:40 Lymphocytes % 11.6 % (20.0-50.0) L 03/05/19 02:40 Monocytes % 4.0 % (2.0-10.0) 03/05/19 02:40 Eosinophils % 3.1 % (0.0-5.0) 03/05/19 02:40 Basophils % 0.8 % (0.0-2.0) 03/05/19 02:40 Sodium 140 mEq/L (136-145) 03/05/19 02:40 Potassium 3.5 mEq/L (3.5-5.1) 03/05/19 02:40 Chloride 105 mEq/L (98-107) 03/05/19 02:40 Carbon Dioxide 24.4 mEq/L (21.0-31.0) 03/05/19 02:40 Anion Gap 14.1 (7.0-16.0) 03/05/19 02:40 BUN 14 mg/dL (7-25) 03/05/19 02:40 Creatinine 0.7 mg/dL (0.7-1.3) 03/05/19 02:40 Est GFR ( Amer) TNP 03/05/19 02:40 Est GFR (Non-Af Amer) TNP 03/05/19 02:40 BUN/Creatinine Ratio 20.0 03/05/19 02:40 Glucose 95 mg/dL (70-105) 03/05/19 02:40 Calcium 8.9 mg/dL (8.6-10.3) 03/05/19 02:40 Total Bilirubin 0.8 mg/dL (0.3-1.0) 03/05/19 02:40 AST 23 U/L (13-39) 03/05/19 02:40 ALT 15 U/L (7-52) 03/05/19 02:40 Alkaline Phosphatase 46 U/L (34-104) 03/05/19 02:40 Troponin I 0.02 ng/mL (0.01-0.05) 03/05/19 02:40 B-Natriuretic Peptide 128.0 pg/mL (5.0-100.0) H 03/05/19 02:40 Total Protein 6.2 gm/dL (6.0-8.3) 03/05/19 02:40 Albumin 3.2 gm/dL (4.2-5.5) L 03/05/19 02:40 Globulin 3.0 gm/dL 03/05/19 02:40 Albumin/Globulin Ratio 1.1 (1.0-1.8) 03/05/19 02:40 Triglycerides 98 mg/dL (<150) 03/05/19 02:40 Cholesterol 153 mg/dL (<200) 03/05/19 02:40 LDL Cholesterol Direct 100 mg/dL (75-193) 03/05/19 02:40 HDL Cholesterol 41 mg/dL (23-92) 03/05/19 02:40 TSH 2.77 uIU/ml (0.34-5.60) 03/05/19 02:40 - Physical Exam Vitals and I&O: Vital Signs Temp 97.5 F 03/19/19 19:59 Pulse 87 03/19/19 19:59 Resp 20 03/19/19 19:59 BP 116/59 03/19/19 19:59 Pulse Ox 93 03/19/19 19:59 Intake & Output 03/19/19 03/19/19 03/20/19 06:59 18:59 06:59 Intake Total 120 1250 Balance 120 1250 Intake: Oral 120 1250 Other: # Voids 3 3 # Bowel Movements 0 Active Medications: Current Medications Acetaminophen (Tylenol) 650 mg PO Q4HR PRN PRN Reason: Mild Pain / Temp above 100 Stop: 05/04/19 04:51 Al Hydrox/Mg Hydrox/Simethicone (Maalox) 30 ml PO Q4HR PRN PRN Reason: GI DISTRESS Stop: 05/04/19 04:51 Carbidopa/Levodopa (Sinemet 25 Mg-250 Mg) 1 tab PO QID [facility] Stop: 05/04/19 08:59 Last Admin: 03/19/19 20:56 Dose: 1 tab Cholecalciferol (Vitamin D3) 2,000 iu PO DAILY [facility] Stop: 05/04/19 08:59 Last Admin: 03/19/19 08:40 Dose: Not Given Divalproex Sodium (Depakote Dr) 250 mg PO BID [facility]; Protocol Stop: 05/17/19 08:59 Last Admin: 03/19/19 16:09 Dose: 250 mg Fluoxetine HCl (Prozac) 20 mg PO DAILY [facility]; Protocol Stop: 05/04/19 08:59 Last Admin: 03/19/19 08:41 Dose: 20 mg Gabapentin (Neurontin) 300 mg PO TID [facility] Stop: 05/04/19 08:59 Last Admin: 03/19/19 20:55 Dose: 300 mg Haloperidol Lactate (Haldol Concentrate 10mg/5ml Susp) 5 mg PO Q6HR PRN; Protocol PRN Reason: Agitation Stop: 05/04/19 05:59 Last Admin: 03/06/19 08:42 Dose: 5 mg Magnesium Hydroxide (Milk Of Magnesia) 30 ml PO HS PRN PRN Reason: Constipation Memantine (Namenda) 5 mg PO DAILY [facility] Stop: 05/05/19 08:59 Last Admin: 03/19/19 08:41 Dose: 5 mg Multivitamins/Vitamin C (Theragran) 1 tab PO DAILY [facility] Stop: 05/04/19 08:59 Last Admin: 03/19/19 08:41 Dose: 1 tab Pantoprazole Sodium (Protonix) 40 mg PO QDAC [facility] Stop: 05/04/19 07:59 Last Admin: 03/19/19 06:30 Dose: 40 mg Pramipexole Dihydrochloride (Mirapex) 0.5 mg PO TID [facility]; Protocol Stop: 05/04/19 08:59 Last Admin: 03/19/19 20:56 Dose: 0.5 mg Tizanidine HCl (Zanaflex) 4 mg PO TID [facility] Stop: 05/04/19 08:59 Last Admin: 03/19/19 20:56 Dose: 4 mg General: demented HEENT: NC/AT, PERRLA, EOMI, anicteric sclerae, throat clear Neck: Supple, No JVD, No thyromegaly, +2 carotid pulse wo bruit, No LAD, + JVD Lungs: CTAB Cardiovascular: RRR, Normal S1, Normal S2, without murmur Abdomen: soft, non-tender, non-distended Neurological: no change Internal Medicine Assmt/Plan - Assessment Assessment: 1.DJD. 2.CONSTIPATION. 3.DEMENTIA - Plan Plan: CONTINUE ON CURRENT MEDICATION AND DIET. Nutritional Asmnt/Malnutr-PDOC - Dietary Evaluation Malnutrition Findings (Please click <Entered> for more info): Nutritional Asmnt/Malnutrition Start: 03/08/19 08: 25 Text: Status: Complete Freq: Protocol: Document 03/08/19 08:27 MMULMIKHAIL (Rec: 03/08/19 08:52 MMULHERZhanna RYDER- [email or web address]) Nutritional Asmnt/Malnutrition Patient General Information Nutritional Screening Moderate Risk Diagnosis Psychosis Pertinent Medical Hx/Surgical Hx Parkinson's disease, degernerative joint disease, dementia Subjective Information Admitted from [facility]. Patient not in room at time of visit. Current Diet Order/ Nutrition Support Pureed Patient / S.O Not Indicated Pertinent Medications maalox, vitamin D, MOM, Theragran, protonix Pertinent Labs (03/05) Albumin 3.2, BNP 128 Nutritional Hx/Data Height 1.75 m Height (Calculated Centimeters) 175.3 Current Weight (lbs) 83.007 kg Weight (Calculated Kilograms) 83.0 Weight (Calculated Grams) 02760.4 [place] Body Weight 160 % [place] Body Weight 114 Body Mass Index (BMI) 27.0 Recent Weight Change No Weight Status Overweight GI Symptoms GI Symptoms None Last BM 03/06 x 1 Difficult in: None Food Allergies No Cultural/Ethnic/Yazdanism Belief none indicated Usual diet at home unknown Skin Integrity/Comment: [place] 18, abrasion on both knees, wound Current %PO Good (75-100%) Estimated Nutritional Goals BEE in Kcals: Using Current wt Calories/Kcals/Kg using CBW 83kg Kcals Calculated 4138-6245 kcal/day (22-27kcal/ kg) Protein: Using Current wt Protein g/k.8-1 gm/kg Protein Calculated ~65-85 gm/day Fluid: ml 4492-5605 ml/day Nutritional Problem 1. Problem Problem No nutrition related diagnosis Intervention/Recommendation Comments 1. Continue pureed diet as tolerated by patient. Expected Outcomes/Goals Expected Outcomes/Goals Oral intake >75% of meals, weight stable, nutrition related labs WNL F/U LR 03/15
--- NOTE | 2019-03-20 01:31 | Progress Notes ---
DATE: 03/19/2019 SUBJECTIVE: The patient seems to be calming down. Staff noting calmer, more redirectable, less restless on exam, less agitated on exam. No screaming or yelling, likely approaching baseline. ASSESSMENT: The patient remains symptomatic, but improving. I will recommend further 24 hours of monitoring. Per health social work professor notes, the patient to going back to [facility]. JOB# [id number]
[2019-03-20] MEDS: Pantoprazole 40 mg EC Tab PO SCH (06:42)
[2019-03-20] MEDS: Multivitamin Tab PO SCH (08:49)
--- NOTE | 2019-03-20 21:11 | Discharge Summary ---
DATE OF DISCHARGE: 03/20/2019 HISTORY OF PRESENT ILLNESS: A 73-year-old male with history of dementia, aggression, agitation, admitted because of worsening behaviors, unruly behaviors, impulsive, unpredictable, acting out, striking out, hypersexual. PAST PSYCHIATRIC HISTORY: Dementia. SOCIAL HISTORY: Born in [place], very involved. Grandson very involved. PROVISIONAL DIAGNOSIS: Dementia, dementia with behaviors. Under medical, please see full H and P. HOSPITAL COURSE: After initial assessment, the patient was started on antipsychotic and mood stabilizing medications, which were really not very efficacious, switched over to Prozac, Depakote and Namenda. Over the course of hospitalization, he did begin to slowly improve, less agitated. No longer combative, no longer hypersexual. continue to be involved. The patient with better sleep, fair appetite allowing ADLs. No longer aggressive and likely to his baseline. Tolerant of treatment. No side effects noted. CONDITION UPON DISCHARGE: Improved, allowing ADLs. Mood "okay." Affect flat, confused, disoriented. No SI, no suicidal gestures. No HI, no psychosis. Insight and judgment are still poor, impulse control better. PROVISIONAL DIAGNOSES: Dementia, dementia with behaviors; mood, unspecified. Under medical, please see full H and P. PROGNOSIS: The patient follows up with outpatient mental health services and remains compliant with treatment and Prognosis will improve, otherwise guarded. JOB# [id number]
== END 2019-03-20 14:30 | DRG 885 ==
LOC: ER 01:43 → GERO 04:00
PROVIDERS: ADMIT Psychiatry & Neurology Psychiatry; ATTEND Psychiatry & Neurology Psychiatry
DX: F39 Unspecified mood [affective] disorder (principal); J18.1 Lobar pneumonia, unspecified organism; F02.81 Dementia in other diseases classified elsewhere, unspecified severity, with behavioral disturbance; G20 Parkinson's disease; M19.90 Unspecified osteoarthritis, unspecified site; M54.9 Dorsalgia, unspecified; K59.00 Constipation, unspecified; K21.9 Gastro-esophageal reflux disease without esophagitis; G89.4 Chronic pain syndrome; N20.0 Calculus of kidney; N44.2 Benign cyst of testis; N50.3 Cyst of epididymis; Z91.81 History of falling
CPT/HCPCS: 36415-UA; 71045-TC; 80053-TC; 80061-TC; 83880-TC; 84443-TC; 84484-TC; 85025-TC; 93005; G0410; Z7610